=== PATIENT | male | born 1940 | race Caucasian/White ===

== ENCOUNTER 2024-08-04 08:37 | Inpatient (IN) | payer MEDICARE ==
--- NOTE | 2024-08-04 08:47 | ED ---
General Adult HPI - General Stated complaint: HECTOR Time Seen by Provider: 08/04/24 08:37 Source: patient, RN notes reviewed, old records reviewed - History of Present Illness Initial comments: This is an 84-year-old male who presents to the emergency department complaining that since yesterday he has been short of breath. Patient states he has also felt chilled. Patient denies any chest pain or palpitation. Patient states he did have a valve replaced at another hospital in June. Patient denies any increased swelling to his legs. Patient states he has had a little bit of a cough lately. - Related Data Home Medications Medication Instructions Recorded Confirmed Acetaminophen [Tylenol Arthritis] 650 mg PO HS 08/04/24 08/04/24 Arginine [l-Arginine] 500 mg PO DAILY 08/04/24 08/04/24 Aspirin EC [Ecotrin Low Dose] 81 mg PO HS 08/04/24 08/04/24 Bisoprolol-Hctz 2.5-6.25 mg [Ziac 1 tab PO HS 08/04/24 08/04/24 2.5-6.25 MG] Budesonide/Formoterol Fumarate 2 puff INHALATION RT-BID 08/04/24 08/04/24 [Symbicort 160-4.5 Mcg Inhaler] Co-Q-10 (Unknown Dose) 1 tab PO DAILY 08/04/24 08/04/24 L.acidoph,Paracasei, B.lactis 1 cap PO DAILY 08/04/24 08/04/24 [Probiotic] Levocetirizine Dihydrochloride 5 mg PO DAILY 08/04/24 08/04/24 [Xyzal] Losartan [Cozaar] 25 mg PO DAILY 08/04/24 08/04/24 Melatonin 5 mg PO HS 08/04/24 08/04/24 Multivitamins, Thera [Multivitamin 1 tab PO DAILY 08/04/24 08/04/24 (formulary)] Pantoprazole [Protonix] 40 mg PO DAILY 08/04/24 08/04/24 Psyllium Husk [Fiber Capsule] 0.4 gm PO DAILY 08/04/24 08/04/24 Rosuvastatin [Crestor] 10 mg PO HS 08/04/24 08/04/24 Tamsulosin [Flomax] 0.4 mg PO HS 08/04/24 08/04/24 Allergies Allergy/AdvReac Type Severity Reaction Status Date / Time No Known Allergies Allergy Verified 08/04/24 10:40 Review of Systems ROS Statement: Those systems with pertinent positive or pertinent negative responses have been documented in the HPI. ROS Other: All systems not noted in ROS Statement are negative. General Exam - General Exam Comments Initial Comments: GENERAL: Patient is well-developed and well-nourished. Patient is nontoxic and well- hydrated and is in mild distress. ENT: Neck is soft and supple. No significant lymphadenopathy is noted. Oropharynx is clear. Moist mucous membranes. Neck has full range of motion without eliciting any pain. EYES: The sclera were anicteric and conjunctiva were pink and moist. Extraocular movements were intact and pupils were equal round and reactive to light. Eyelid s were unremarkable. PULMONARY: Unlabored respirations. Good breath sounds bilaterally. No audible rales rhonchi or wheezing was noted. CARDIOVASCULAR: There is a regular rate and rhythm without any murmurs gallops or rubs. ABDOMEN: Soft and nontender with normal bowel sounds. SKIN: Skin is clear with no lesions or rashes and otherwise unremarkable. NEUROLOGIC: Patient is alert and oriented x3. Cranial nerves II through XII are grossly intact. Motor and sensory are also intact. Normal speech, volume and content. Symmetrical smile. MUSCULOSKELETAL: Normal extremities with adequate strength and full range of motion. No lower extremity swelling or edema. No calf tenderness. LYMPHATICS: No significant lymphadenopathy is noted PSYCHIATRIC: Normal psychiatric evaluation. Course Vital Signs 08/04/24 08/04/24 08/04/24 08:39 08:45 09:07 Temperature 100.2 F H 100.2 F H Pulse Rate 120 H 117 H Respiratory 24 24 24 Rate Blood Pressure 182/82 168/63 O2 Sat by Pulse 94 L 92 L Oximetry 08/04/24 08/04/24 08/04/24 09:45 10:00 11:00 Temperature 98.5 F 98.5 F Pulse Rate 113 H 110 H 117 H Respiratory 20 20 22 Rate Blood Pressure 131/51 130/60 122/85 O2 Sat by Pulse 93 L 93 L 93 L Oximetry Medical Decision Making - Medical Decision Making EKG is interpreted by myself. EKG shows sinus tachycardia at 119 bpm TX was 167 QRS is 114 QT interval 326 QTc is 397. Patient's EKG shows no ST segment elevation or depression Was pt. sent in by a medical professional or institution ([facility] Morales, SEA[employer] PROCESS WORKER, urgent care, hospital, or retirement...) When possible be specific @ -No Did you speak to anyone other than the patient for history (EMS, parent, family, police, friend...)? What history was obtained from this source @ -No Did you review nursing and triage notes (agree or disagree)? Why? @ -I reviewed and agree with nursing and triage notes Were old charts reviewed (outside hosp., previous admission, EMS record, old EKG, old radiological studies, urgent care reports/EKG's, retirement records)? Report findings @ -No old charts were reviewed Differential Diagnosis? @ -Differential Dyspnea: Coronary syndrome, arrhythmia, tamponade, asthma, COPD, pulmonary embolism, pneumonia, pneumothorax, pulmonary effusion, anaphylaxis, diabetic ketoacidosis, flailed chest, pulmonary contusion, diaphragmatic rupture, anemia, neuromus cular, this is not meant to be an all-inclusive list. EKG interpreted by me (3pts min.). @ -As above X-rays interpreted by me (1pt min.). @ -Chest x-ray showed no acute abnormality CT interpreted by me (1pt min.). @ -CT of the chest showed no PE or pneumonia U/S interpreted by me (1pt. min.). @ -None done What testing was considered but not performed or refused? (CT, X-rays, U/S, labs)? Why? @ -None What meds were considered but not given or refused? Why? @ -None Did you discuss the management of the patient with other professionals (professionals i.e. JO Morales, SEAFOOD PROCESS WORKER, lab, RT, psych nurse, social sciences department chair, copyright manager, teacher, juvenile justice officer, pillowcase turner)? Give summary @ -I spoke with sound physicians they agreed to admit the patient Was smoking cessation discussed for >3mins.? @ -No Was critical care preformed (if so, how long)? @ -No Were there social determinants of health that impacted care today? How? (Homelessness, low income, unemployed, alcoholism, drug addiction, transportation, low edu. Level, literacy, decrease access to med. care, assisted, rehab)? @ -No Was there de-escalation of care discussed even if they declined (Discuss DNR or withdrawal of care, Hospice)? DNR status @ -No What co-morbidities impacted this encounter? (DM, HTN, Smoking, COPD, CAD, Cancer, CVA, ARF, Chemo, Hep., AIDS, mental health diagnosis, sleep apnea, morbid obesity)? @ -None Was patient admitted / discharged? Hospital course, mention meds given and route, prescriptions, significant lab abnormalities, going to OR and other pertinent info. @ -Patient pulse ox on room air was 90 to 93% however when patient was in bed his heart rate was about 110 beats a minute and with any exertion his heart rate would go up to 135 bpm. I did give the patient a dose of antibiotics because if he has shortness of breath and significant coughing. Undiagnosed new problem with uncertain prognosis? @ -No Drug Therapy requiring intensive monitoring for toxicity (Heparin, Nitro, Insulin, Cardizem)? @ -No Were any procedures done? @ -No Diagnosis/symptom? @ -Dyspnea, with fever Acute, or Chronic, or Acute on Chronic? @ -Acute Uncomplicated (without systemic symptoms) or Complicated (systemic symptoms)? @ -Complicated Side effects of treatment? @ -No Exacerbation, Progression, or Severe Exacerbation? @ -No Poses a threat to life or bodily function? How? (Chest pain, [place], [place], pneumonia, PE, COPD, DKA, ARF, appy, cholecystitis, CVA, Diverticulitis, Homicidal, Suicidal, threat to staff... and all critical care pts) @ -No Diagnosis/symptom? @ -Tachycardia Acute, or Chronic, or Acute on Chronic? @ -Acute Uncomplicated (without systemic symptoms) or Complicated (systemic symptoms)? @ -Complicated Side effects of treatment? @ -None Exacerbation, Progression, or Severe Exacerbation] @ -No Poses a threat to life or bodily function? @ -No - Lab Data Result diagrams: 08/04/24 08:39 08/04/24 08:39 Lab Results 08/04/24 08/04/24 08/04/24 Range/Units 08:39 08:39 08:39 WBC 12.2 H (3.8-10.6) k/uL RBC 4.09 L (4.30-5.90) m/uL Hgb 12.1 L (13.0-17.5) gm/dL Hct 36.5 L (39.0-53.0) % MCV 89.2 (80.0-100.0) fL MCH 29.6 (25.0-35.0) pg MCHC 33.2 (31.0-37.0) g/dL RDW 13.8 (11.5-15.5) % Plt Count 282 (150-450) k/uL MPV 6.8 Neutrophils % 89 % Lymphocytes % 6 % Monocytes % 4 % Eosinophils % 1 % Basophils % 0 % Neutrophils # 10.9 H (1.3-7.7) k/uL Lymphocytes # 0.7 L (1.0-4.8) k/uL Monocytes # 0.5 (0-1.0) k/uL Eosinophils # 0.1 (0-0.7) k/uL Basophils # 0.0 (0-0.2) k/uL PT 12.2 (10.0-12.5) sec INR 1.1 (<1.2) APTT 21.7 L (22.0-30.0) sec D-Dimer (<0.60) mg/L FEU Sodium 135 L (137-145) mmol/L Potassium 4.4 (3.5-5.1) mmol/L Chloride 100 (98-107) mmol/L Carbon Dioxide 27 (22-30) mmol/L Anion Gap 8 mmol/L BUN 16 (9-20) mg/dL Creatinine 1.04 (0.66-1.25) mg/dL Est GFR (CKD-EPI)AfAm 75 (>60 ml/min/1.73 sqM) Est GFR (CKD-EPI)NonAf 65 (>60 ml/min/1.73 sqM) Glucose 172 H (74-99) mg/dL Lactic Ac Sepsis Rflx Plasma Lactic Acid John (0.7-2.0) mmol/L Calcium 9.1 (8.4-10.2) mg/dL Total Bilirubin 1.1 (0.2-1.3) mg/dL AST 41 (17-59) U/L ALT 26 (4-49) U/L Alkaline Phosphatase 77 (38-126) U/L NT-Pro-B Natriuret Pep 207 pg/mL Total Protein 7.3 (6.3-8.2) g/dL Albumin 4.5 (3.5-5.0) g/dL Urine Color Urine Appearance (Clear) Urine pH (5.0-8.0) Ur Specific [place] (1.001-1.035) Urine Protein (Negative) Urine Glucose (UA) (Negative) Urine Ketones (Negative) Urine Blood (Negative) Urine Nitrite (Negative) Urine Bilirubin (Negative) Urine Urobilinogen (<2.0) mg/dL Ur Leukocyte Esterase (Negative) Influenza Type A (PCR) (Not Detectd) Influenza Type B (PCR) (Not Detectd) RSV (PCR) (Not Detectd) SARS-CoV-2 (PCR) (Not Detectd) 08/04/24 08/04/24 08/04/24 Range/Units 08:39 08:50 08:54 WBC (3.8-10.6) k/uL RBC (4.30-5.90) m/uL Hgb (13.0-17.5) gm/dL Hct (39.0-53.0) % MCV (80.0-100.0) fL MCH (25.0-35.0) pg MCHC (31.0-37.0) g/dL RDW (11.5-15.5) % Plt Count (150-450) k/uL MPV Neutrophils % % Lymphocytes % % Monocytes % % Eosinophils % % Basophils % % Neutrophils # (1.3-7.7) k/uL Lymphocytes # (1.0-4.8) k/uL Monocytes # (0-1.0) k/uL Eosinophils # (0-0.7) k/uL Basophils # (0-0.2) k/uL PT (10.0-12.5) sec INR (<1.2) APTT (22.0-30.0) sec D-Dimer 1.82 H (<0.60) mg/L FEU Sodium (137-145) mmol/L Potassium (3.5-5.1) mmol/L Chloride (98-107) mmol/L Carbon Dioxide (22-30) mmol/L Anion Gap mmol/L BUN (9-20) mg/dL Creatinine (0.66-1.25) mg/dL Est GFR (CKD-EPI)AfAm (>60 ml/min/1.73 sqM) Est GFR (CKD-EPI)NonAf (>60 ml/min/1.73 sqM) Glucose (74-99) mg/dL Lactic Ac Sepsis Rflx Plasma Lactic Acid John 2.3 H* (0.7-2.0) mmol/L Calcium (8.4-10.2) mg/dL Total Bilirubin (0.2-1.3) mg/dL AST (17-59) U/L ALT (4-49) U/L Alkaline Phosphatase (38-126) U/L NT-Pro-B Natriuret Pep pg/mL Total Protein (6.3-8.2) g/dL Albumin (3.5-5.0) g/dL Urine Color Urine Appearance (Clear) Urine pH (5.0-8.0) Ur Specific [place] (1.001-1.035) Urine Protein (Negative) Urine Glucose (UA) (Negative) Urine Ketones (Negative) Urine Blood (Negative) Urine Nitrite (Negative) Urine Bilirubin (Negative) Urine Urobilinogen (<2.0) mg/dL Ur Leukocyte Esterase (Negative) Influenza Type A (PCR) Not Detected (Not Detectd) Influenza Type B (PCR) Not Detected (Not Detectd) RSV (PCR) Not Detected (Not Detectd) SARS-CoV-2 (PCR) Not Detected (Not Detectd) 08/04/24 08/04/24 Range/Units 09:31 10:37 WBC (3.8-10.6) k/uL RBC (4.30-5.90) m/uL Hgb (13.0-17.5) gm/dL Hct (39.0-53.0) % MCV (80.0-100.0) fL MCH (25.0-35.0) pg MCHC (31.0-37.0) g/dL RDW (11.5-15.5) % Plt Count (150-450) k/uL MPV Neutrophils % % Lymphocytes % % Monocytes % % Eosinophils % % Basophils % % Neutrophils # (1.3-7.7) k/uL Lymphocytes # (1.0-4.8) k/uL Monocytes # (0-1.0) k/uL Eosinophils # (0-0.7) k/uL Basophils # (0-0.2) k/uL PT (10.0-12.5) sec INR (<1.2) APTT (22.0-30.0) sec D-Dimer (<0.60) mg/L FEU Sodium (137-145) mmol/L Potassium (3.5-5.1) mmol/L Chloride (98-107) mmol/L Carbon Dioxide (22-30) mmol/L Anion Gap mmol/L BUN (9-20) mg/dL Creatinine (0.66-1.25) mg/dL Est GFR (CKD-EPI)AfAm (>60 ml/min/1.73 sqM) Est GFR (CKD-EPI)NonAf (>60 ml/min/1.73 sqM) Glucose (74-99) mg/dL Lactic Ac Sepsis Rflx Y Plasma Lactic Acid John (0.7-2.0) mmol/L Calcium (8.4-10.2) mg/dL Total Bilirubin (0.2-1.3) mg/dL AST (17-59) U/L ALT (4-49) U/L Alkaline Phosphatase (38-126) U/L NT-Pro-B Natriuret Pep pg/mL Total Protein (6.3-8.2) g/dL Albumin (3.5-5.0) g/dL Urine Color Yellow Urine Appearance Clear (Clear) Urine pH 5.5 (5.0-8.0) Ur Specific [place] 1.024 (1.001-1.035) Urine Protein Trace H (Negative) Urine Glucose (UA) Negative (Negative) Urine Ketones 1+ H (Negative) Urine Blood Negative (Negative) Urine Nitrite Negative (Negative) Urine Bilirubin Negative (Negative) Urine Urobilinogen <2.0 (<2.0) mg/dL Ur Leukocyte Esterase Negative (Negative) Influenza Type A (PCR) (Not Detectd) Influenza Type B (PCR) (Not Detectd) RSV (PCR) (Not Detectd) SARS-CoV-2 (PCR) (Not Detectd) Disposition Clinical Impression: Dyspnea, Fever, Tachycardia Disposition: ADMITTED IP TO THIS HOSP Referrals: Sherif Tejeda MD [Primary Care Provider] - 1-2 days Time of Disposition: 12:28
[2024-08-04 09:02] LABS: Basophils % (A) 0 %; Eosinophils # (A) 0.1 k/uL (0-0.7); Eosinophils % (A) 1 %; HCT 36.5 % (39.0-53.0); HGB 12.1 gm/dL (13.0-17.5); Lymphocytes # (A) 0.7 k/uL (1.0-4.8); Lymphocytes % (A) 6 %; MCH 29.6 pg (25.0-35.0); MCHC 33.2 g/dL (31.0-37.0); MCV 89.2 fL (80.0-100.0); Mean Platelet Volume 6.8; Monocytes # (A) 0.5 k/uL (0-1.0); Monocytes % (A) 4 %; Neutrophils # (A) 10.9 k/uL (1.3-7.7); Neutrophils % (A) 89 %; Platelet Count 282 k/uL (150-450); RBC 4.09 m/uL (4.30-5.90); RDW 13.8 % (11.5-15.5); WBC 12.2 k/uL (3.8-10.6)
[2024-08-04] MEDS: IBUPROFEN 600 MG TAB PO STA (09:03)
[2024-08-04] MEDS: ACETAMINOPHEN TAB 500 MG TAB PO STA (09:03)
[2024-08-04] MEDS: LACTATED RINGERS 500 ML IV ONE (09:05)
[2024-08-04 09:13] LABS: ALT 26 U/L (4-49); AST 41 U/L (17-59); African American GFR (CKD) 75 (>60 ml/min/1.73 sqM); Albumin 4.5 g/dL (3.5-5.0); Alkaline Phosphatase 77 U/L (38-126); Anion Gap 8 mmol/L; Blood Urea Nitrogen 16 mg/dL (9-20); Calcium 9.1 mg/dL (8.4-10.2); Carbon Dioxide 27 mmol/L (22-30); Chloride 100 mmol/L (98-107); Glucose 172 mg/dL (74-99); Non-African American GFR(CKD) 65 (>60 ml/min/1.73 sqM); Potassium 4.4 mmol/L (3.5-5.1); Sodium 135 mmol/L (137-145); Total Bilirubin 1.1 mg/dL (0.2-1.3); Total Protein 7.3 g/dL (6.3-8.2)
[2024-08-04 09:22] LABS: NT-Pro-B-Type Natriuretic Pept 207 pg/mL
[2024-08-04 09:24] LABS: INR 1.1 (<1.2); Prothrombin Time 12.2 sec (10.0-12.5)
[2024-08-04 09:28] LABS: Partial Thromboplastin Time 21.7 sec (22.0-30.0)
--- NOTE | 2024-08-04 09:31 | XR ---
EXAMINATION TYPE: XR chest 2V DATE OF EXAM: 08/04/2024 9:14 AM COMPARISON: 07/28/2023 CLINICAL INDICATION: Male, 84 years old with history of Difficulty breathing , TECHNIQUE: XR chest 2V view(s) obtained. FINDINGS: The heart size is normal. The pulmonary vasculature is normal. The lungs are clear. Some hyperinflation is present. Prior cardiac valve replacement is evident. IMPRESSION: 1. No acute pulmonary process. [facility], , 08/04/2024 9:28 AM
[2024-08-04 09:36] LABS: Influenza A Not Detected (Not Detectd); Influenza B Not Detected (Not Detectd); RSV Not Detected (Not Detectd)
[2024-08-04 10:43] LABS: Appearance,Urine Clear (Clear); Bilirubin,Urine Negative (Negative); Blood,Urine Negative (Negative); Color,Urine Yellow; Glucose,Urine (UA) Negative (Negative); Ketones,Urine 1+ (Negative); Leukocyte Esterase,Urine Negative (Negative); Nitrite,Urine Negative (Negative); PH, Urine 5.5 (5.0-8.0); Protein,Urine Trace (Negative); Specific Gravity,Urine 1.024 (1.001-1.035); Urobilinogen,Urine <2.0 mg/dL (<2.0)
[2024-08-04] MEDS: cefTRIAXone IN SWFI 1,000 MG/10 ML SYRINGE IVP STA (11:10)
--- NOTE | 2024-08-04 12:11 | CT ---
EXAMINATION TYPE: CT chest angio for PE DATE OF EXAM: 08/04/2024 11:53 AM COMPARISON: None. CLINICAL INDICATION: Male, 84 years old with history of Short of breath and tachycardic, SOB, TACHYCA RDIC, TECHNIQUE: CT of the chest is performed on a spiral scan at 2 mm thick sections. Study is performed with intravenous contrast timed for evaluation for pulmonary embolism. This will limit additional po rtions of the evaluation. 10mm MIP images reconstructed by the technologist are reviewed on the comp uter in the coronal and sagittal planes. Contrast used:100 ml mL of Isovue 370 with IV Contrast, (none if empty) Oral contrast used: (none if empty) CT DLP: 470.3 mGycm, Automated exposure control for dose reduction was used. FINDINGS: No persistent filling defects are evident to suggest an acute pulmonary embolism. No mediastinal or hilar adenopathy enlarged by CT criteria is evident. The ascending aorta diameter at the level of the main pulmonary artery is 3.5 cm. The main pulmonary artery diameter at the bifurcation is 2.6 cm. Lung windows are clear. Some emphysematous type changes are present. No significant coronary artery calcifications. Limited CT sections were through the upper abdomen. Upper abdomen appears unremarkable. IMPRESSION: 1. No acute pulmonary embolism. 2. Mild emphysematous change [facility], , 08/04/2024 12:09 PM
[2024-08-04] MEDS ORDERED: IBUPROFEN 600 MG TAB PO PRN (12:39)
[2024-08-04] MEDS ORDERED: ACETAMINOPHEN TAB 325 MG TAB PO PRN (12:39)
[2024-08-04] MEDS ORDERED: IPRATROPIUM-ALBUTEROL 3 ML NEB INHALATION PRN (12:54)
--- NOTE | 2024-08-04 13:01 | P.HPIM ---
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 Ongoing for the past 3-4 days. He reports a dry cough, mild lower extremity swelling, poor appetite and subjective chills. Denies any orthopnea. No sick contacts. He follows a Senior Financial Reporting Accountant out of [facility] and Weighmaster Dr. García. He also reports chest pain, on and off for many years, described as chest tightness. He reports undergoing a cardiac cath recently prior to his TAVR and was told everything was normal. He reports a burning sensation in his right anterior thigh over the past 3-4 days as well. He denies any headache, nausea or vomiting, fever, palpitations, dizziness, changes in urination or bowel habits. In the ED he underwent extensive evaluation. BP 168/63, HR 117, T 100.2F, RR 24, 92% on RA. CBC, Coag panel, CMP significant for WBC 12.2, RBC 4.09, Hg 12.1, Hct 36.5, APTT 21.7, Na 135, glu 172. Lactic acid 2.3. D-Dimer 1.82. BNP 207. UA trace protein. Flu, RSV, COVID neg. CXR no acute process. CTA chest neg for PE. EKG sinus tachycardia. Patient is admitted for further workup and management. General: nontoxic, no distress, appears stated age Derm: warm, dry Head: atraumatic, normocephalic, symmetric Mouth: no lip lesion, mucus membranes moist Cardiovascular: S1S2 tachy, no murmur Lungs: Decreased BS bilaterally, no rales , no accessory muscle use Abd: Soft, non tender to palpation Ext: no gross muscle atrophy, 1+ LE edema, no contractures Neuro: No focal neurologic deficits. Psych: Alert and oriented. Based on my assessment of this patient, this patient meets a high complexity level of care. Acute Dyspnea: BNP 207, CHF less likely. D-Dimer elevated but CTA chest neg for PE. Plans to rule out ACS. He does meet SIRS criteria (leukocytosis, low grade fever, tachycardia and RR > 20), possibility of a viral infection not ruled out. Obtain Echo given recent TAVR. DuoNeb Q4H PRN SOB/wheezing. Chest pain: Trend Trop/EKG to rule out ACS. ASA 81 mg PO QD. Lipitor as below. Telemetry monitoring. SIRS: No signs of obvious infection at this time. CXR/CTA chest and UA neg. COVID, RSV, Flu neg. Hold antibiotics for now. BCx ordered. Lactic acidosis: Status post 500 cc NS bolus. Trend until negative. Elevated D-Dimer: CTA chest neg for PE. Paresthesia: Of the right anterior thigh. 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 Fall precautions. PT and OT consult. BPH: Flomax 0.4 mg PO QD. HLD: Lipitor 20 mg PO QHS. GERD: Protonix 40 mg PO QD. HTN: Losartan 25 mg PO QD. Emphysema: Not in acute exacerbation. Symbicort 2 INH BID. DuoNeb as above. CODE STATUS: NO CODE but OK with intubation and other life saving measures. DVT Prophylaxis: Lovenox SQ GI Prophylaxis: Protonix PO Designated medical POA if patient is not able to make medical decisions for themselves: Daughter I have reviewed the following technical solutions consultant notes: ED note. I have reviewed the results of the following tests: As above. I have ordered the following tests: As above. I have discussed the care of this patient with the following independent historian: Daughter. I have independently interpreted the following test below: CXR I have discussed the management of this patient with the following physician: Dr. Sanchez. Past Medical History Past Medical History: Hyperlipidemia, Hypertension History of Any Multi-Drug Resistant Organisms: None Reported Additional Past Surgical History / Comment(s): heart valve replacemnt 07/16/24 Smoking Status: Former smoker Past Alcohol Use History: None Reported Past Drug Use History: None Reported Medications and Allergies Home Medications Medication Instructions Recorded Confirmed Type Acetaminophen [Tylenol Arthritis] 650 mg PO HS 08/04/24 08/04/24 History Arginine [l-Arginine] 500 mg PO DAILY 08/04/24 08/04/24 History Aspirin EC [Ecotrin Low Dose] 81 mg PO HS 08/04/24 08/04/24 History Bisoprolol-Hctz 2.5-6.25 mg [Ziac 1 tab PO HS 08/04/24 08/04/24 History 2.5-6.25 MG] Budesonide/Formoterol Fumarate 2 puff INHALATION RT-BID 08/04/24 08/04/24 History [Symbicort 160-4.5 Mcg Inhaler] Co-Q-10 (Unknown Dose) 1 tab PO DAILY 08/04/24 08/04/24 History L.acidoph,Paracasei, B.lactis 1 cap PO DAILY 08/04/24 08/04/24 History [Probiotic] Levocetirizine Dihydrochloride 5 mg PO DAILY 08/04/24 08/04/24 History [Xyzal] Losartan [Cozaar] 25 mg PO DAILY 08/04/24 08/04/24 History Melatonin 5 mg PO HS 08/04/24 08/04/24 History Multivitamins, Thera [Multivitamin 1 tab PO DAILY 08/04/24 08/04/24 History (formulary)] Pantoprazole [Protonix] 40 mg PO DAILY 08/04/24 08/04/24 History Psyllium Husk [Fiber Capsule] 0.4 gm PO DAILY 08/04/24 08/04/24 History Rosuvastatin [Crestor] 10 mg PO HS 08/04/24 08/04/24 History Tamsulosin [Flomax] 0.4 mg PO HS 08/04/24 08/04/24 History Allergies Allergy/AdvReac Type Severity Reaction Status Date / Time No Known Allergies Allergy Verified 08/04/24 10:40 Physical Exam Vitals: Vital Signs Temp Pulse Resp BP Pulse Ox 08/04/24 11:00 117 H 22 122/85 93 L 08/04/24 10:00 98.5 F 110 H 20 130/60 93 L 08/04/24 09:45 98.5 F 113 H 20 131/51 93 L 08/04/24 09:07 24 08/04/24 08:45 100.2 F H 117 H 24 168/63 92 L 08/04/24 08:39 100.2 F H 120 H 24 182/82 94 L Intake and Output 08/03/24 08/04/24 08/04/24 22:59 06:59 14:59 Other: Weight 101.605 kg Results CBC & Chem 7: 08/04/24 08:39 08/04/24 08:39 Labs: Abnormal Lab Results - Last 24 Hours (Table) 08/04/24 08/04/24 08/04/24 Range/Units 08:39 08:39 08:39 WBC 12.2 H (3.8-10.6) k/uL RBC 4.09 L (4.30-5.90) m/uL Hgb 12.1 L (13.0-17.5) gm/dL Hct 36.5 L (39.0-53.0) % Neutrophils # 10.9 H (1.3-7.7) k/uL Lymphocytes # 0.7 L (1.0-4.8) k/uL APTT 21.7 L (22.0-30.0) sec D-Dimer (<0.60) mg/L FEU Sodium 135 L (137-145) mmol/L Glucose 172 H (74-99) mg/dL Plasma Lactic Acid John (0.7-2.0) mmol/L Urine Protein (Negative) Urine Ketones (Negative) 08/04/24 08/04/24 08/04/24 Range/Units 08:39 08:50 10:37 WBC (3.8-10.6) k/uL RBC (4.30-5.90) m/uL Hgb (13.0-17.5) gm/dL Hct (39.0-53.0) % Neutrophils # (1.3-7.7) k/uL Lymphocytes # (1.0-4.8) k/uL APTT (22.0-30.0) sec D-Dimer 1.82 H (<0.60) mg/L FEU Sodium (137-145) mmol/L Glucose (74-99) mg/dL Plasma Lactic Acid John 2.3 H* (0.7-2.0) mmol/L Urine Protein Trace H (Negative) Urine Ketones 1+ H (Negative)
[2024-08-04] MEDS: SODIUM CHLORIDE 0.9% 1,000 ML IV ONE (13:17)
[2024-08-04] MEDS: SODIUM CHLORIDE 0.9% 500 ML 500 ML IV ONE (13:18)
[2024-08-04] MEDS: ASPIRIN 81 MG PO STA (14:30)
[2024-08-04] MEDS: SODIUM CHLORIDE 0.9% 1,000 ML IV SCH (14:30)
[2024-08-04] MEDS: LACTATED RINGERS 1,000 ML IV ONE (16:45)
[2024-08-04] MEDS: SYMBICORT 160-4.5 MCG INHALER INHALATION SCH (20:02)
[2024-08-04] MEDS ORDERED: ASPIRIN 81 MG PO SCH (21:00)
[2024-08-04] MEDS: ATORVASTATIN 20 MG TAB PO SCH (22:01)
[2024-08-04] MEDS: MELATONIN 5 MG TABLET PO SCH (22:01)
[2024-08-04] MEDS: TAMSULOSIN 0.4 MG CAP.ER.24H PO SCH (22:01)
[2024-08-04] MEDS: BISOPROLOL-HCTZ 2.5-6.25 MG 1 EACH TAB PO SCH (22:07)
[2024-08-05] MEDS: LORATADINE 10 MG TAB PO SCH (08:19)
[2024-08-05] MEDS: ENOXAPARIN 40 MG/0.4 ML SYRINGE SQ SCH (08:19)
[2024-08-05] MEDS: LOSARTAN 25 MG TAB PO SCH (08:19)
[2024-08-05] MEDS: PANTOPRAZOLE 40 MG TABLET PO SCH (08:20)
[2024-08-05 08:36] VITALS: BMI 35.0
[2024-08-05] MEDS: CEFEPIME 2 GM in SODIUM CHLORIDE 0.9% 100 ML IVPB SCH ×2 (09:41→20:34)
--- NOTE | 2024-08-05 10:03 | P.CRDCN ---
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 We have been asked to see the patient in consultation for his troponins. Patient examined at the bedside. Patient presented to the hospital with a chief complaint of shortness of breath and fatigue. Patient states on Monday morning he began to feel short of breath and very tired. He also reports having a cough without sputum production. He states on Monday he had fever and chills at home. The patient was found to be tachycardic and febrile upon admission. Initial viral panel was completed which was negative. Patient denies having any chest pain or pressure. Preliminary blood cultures are positive for gram-negative bacilli. Patient does report he underwent TAVR on 07/16/2024 at [facility]. He reports having a cardiac catheterization prior to his surgery and states he did not have any blockages. DIAGNOSTICS: - EKG reveals sinus tachycardia with incomplete right bundle branch block. No signs of acute ischemia. - Chest xray negative for acute process - Chest CTA: Negative for pulmonary embolism - Laboratory data: WBC 12.2. Hemoglobin 12.1. Platelet count 282. Sodium 135. Potassium 4.4. BUN 16. Creatinine 1.04. Troponin 0.040. 0.049. - Current home cardiac medications include Ziac 2.5-6.25 mg at night, rosuvastatin 10 mg at night, aspirin 81 mg daily, and losartan 25 mg daily. - No previous echocardiogram, stress test, or cardiac catheterization available in EMR for review REVIEW OF SYSTEMS: At the time of my exam: CONSTITUTIONAL: Denies fever or chills. HEENT: Denies blurred vision, vision changes, or eye pain. Denies hemoptysis CARDIOVASCULAR: Denies chest pain. Denies orthopnea. Denies PND. Denies palp itations RESPIRATORY: Denies shortness of breath. GASTROINTESTINAL: Denies abdominal pain. Denies nausea or vomiting. HEMATOLOGIC: Denies bleeding disorders. GENITOURINARY: Denies any blood in urine. SKIN: Denies pruitis. Denies rash. PHYSICAL EXAM: VITAL SIGNS: Reviewed. GENERAL: Well-developed in no acute distress. HEENT: Head is normocephalic. Pupils are equal, round. Sclerae anicteric. Mucous membranes of the mouth are moist. Neck supple. No JVD or thyromegaly LUNGS: Respirations even and unlabored. Lungs essentially clear to auscultation bilaterally. HEART: Regular rate and rhythm. S1 and S2 heard. ABDOMEN: Soft. Nondistended. Nontender. EXTREMITIES: Normal range of motion. No clubbing or cyanosis. Peripheral pulses intact. No lower extremity edema NEUROLOGIC: Awake and alert. Oriented x 3. ASSESSMENT: Sepsis (febrile, leukocytosis, tachycardic) Bacteremia, blood cultures positive for gram-negative bacilli Elevated troponin, type II, secondary to sepsis History of TAVR, 07/16/2024, at [facility] Hypertension Hyperlipidemia PLAN: An acute coronary event has been ruled out Obtain 2D echo to assess cardiac structure and function Recheck patient for COVID, RSV, influenza Await finalization of blood cultures Resume home cardiac medications Further recommendations pending patient course Nurse practitioner note has been reviewed by physician. Signing provider agrees with the documented findings, assessment, and plan of care documented by GRAPHIC COORDINATOR as a scribe. Past Medical History Past Medical History: Hyperlipidemia, Hypertension History of Any Multi-Drug Resistant Organisms: None Reported Past Surgical History: Joint Replacement, Orthopedic Surgery Additional Past Surgical History / Comment(s): heart valve replacemnt 07/16/24; Bilat hip replacement 2013 Past Anesthesia/Blood Transfusion Reactions: No Reported Reaction Past Psychological History: No Psychological Hx Reported Smoking Status: Former smoker Past Alcohol Use History: None Reported Past Drug Use History: None Reported Medications and Allergies Home Medications Medication Instructions Recorded Confirmed Type Acetaminophen [Tylenol Arthritis] 650 mg PO HS 08/04/24 08/04/24 History Arginine [l-Arginine] 500 mg PO DAILY 08/04/24 08/04/24 History Aspirin EC [Ecotrin Low Dose] 81 mg PO HS 08/04/24 08/04/24 History Bisoprolol-Hctz 2.5-6.25 mg [Ziac 1 tab PO HS 08/04/24 08/04/24 History 2.5-6.25 MG] Budesonide/Formoterol Fumarate 2 puff INHALATION RT-BID 08/04/24 08/04/24 History [Symbicort 160-4.5 Mcg Inhaler] Co-Q-10 (Unknown Dose) 1 tab PO DAILY 08/04/24 08/04/24 History L.acidoph,Paracasei, B.lactis 1 cap PO DAILY 08/04/24 08/04/24 History [Probiotic] Levocetirizine Dihydrochloride 5 mg PO DAILY 08/04/24 08/04/24 History [Xyzal] Losartan [Cozaar] 25 mg PO DAILY 08/04/24 08/04/24 History Melatonin 5 mg PO HS 08/04/24 08/04/24 History Multivitamins, Thera [Multivitamin 1 tab PO DAILY 08/04/24 08/04/24 History (formulary)] Pantoprazole [Protonix] 40 mg PO DAILY 08/04/24 08/04/24 History Psyllium Husk [Fiber Capsule] 0.4 gm PO DAILY 08/04/24 08/04/24 History Rosuvastatin [Crestor] 10 mg PO HS 08/04/24 08/04/24 History Tamsulosin [Flomax] 0.4 mg PO HS 08/04/24 08/04/24 History Allergies Allergy/AdvReac Type Severity Reaction Status Date / Time acetaminophen [From [place]] AdvReac Hallucinati Verified 08/04/24 21:51 ons hydrocodone [From [place]] AdvReac Hallucinati Verified 08/04/24 21:51 ons Physical Exam Vitals: Vital Signs Temp Pulse Pulse Resp BP BP Pulse Ox 08/05/24 07:00 98.2 F 86 16 151/74 98 08/05/24 01:44 98.6 F 62 15 126/74 99 08/04/24 20:35 99.0 F 95 20 133/66 95 08/04/24 16:30 98 20 139/57 97 08/04/24 14:28 98.3 F 98 20 105/48 93 L 08/04/24 11:00 117 H 22 122/85 93 L 08/04/24 10:00 98.5 F 110 H 20 130/60 93 L 08/04/24 09:45 98.5 F 113 H 20 131/51 93 L 08/04/24 09:07 24 08/04/24 08:45 100.2 F H 117 H 24 168/63 92 L 08/04/24 08:39 100.2 F H 120 H 24 182/82 94 L Intake and Output 08/04/24 08/05/24 08/05/24 22:59 06:59 14:59 Other: # Voids 3 # Bowel Movements 0 Weight 101.605 kg Results 08/04/24 08:39 08/04/24 08:39 Cardiac Enzymes 08/04/24 08/04/24 08/04/24 Range/Units 08:39 13:16 15:39 AST 41 (17-59) U/L Troponin I 0.040 H* 0.049 H* (0.000-0.034) ng/mL Coagulation 08/04/24 Range/Units 08:39 PT 12.2 (10.0-12.5) sec APTT 21.7 L (22.0-30.0) sec CBC 08/04/24 Range/Units 08:39 WBC 12.2 H (3.8-10.6) k/uL RBC 4.09 L (4.30-5.90) m/uL Hgb 12.1 L (13.0-17.5) gm/dL Hct 36.5 L (39.0-53.0) % Plt Count 282 (150-450) k/uL Comprehensive Metabolic Panel 08/04/24 Range/Units 08:39 Sodium 135 L (137-145) mmol/L Potassium 4.4 (3.5-5.1) mmol/L Chloride 100 (98-107) mmol/L Carbon Dioxide 27 (22-30) mmol/L BUN 16 (9-20) mg/dL Creatinine 1.04 (0.66-1.25) mg/dL Glucose 172 H (74-99) mg/dL Calcium 9.1 (8.4-10.2) mg/dL AST 41 (17-59) U/L ALT 26 (4-49) U/L Alkaline Phosphatase 77 (38-126) U/L Total Protein 7.3 (6.3-8.2) g/dL Albumin 4.5 (3.5-5.0) g/dL Current Medications Generic Name Dose Route Start Last Admin Trade Name Freq PRN Reason Stop Dose Admin Acetaminophen 650 mg 08/04/24 12:39 Acetaminophen Tab 325 Mg Tab PO Q4HR PRN Fever and/ or Pain Albuterol/Ipratropium 3 ml 08/04/24 12:54 Ipratropium-Albuterol 3 Ml Neb INHALATION RT-Q4H PRN Shortness Of Breath Or Wheezing Aspirin 81 mg 08/05/24 21:00 Aspirin 81 Mg PO HS [facility] Atorvastatin Calcium 20 mg 08/04/24 21:00 08/04/24 22:01 Atorvastatin 20 Mg Tab PO 20 mg HS AMALIA Administration Bisoprolol Fumarate 1 each 08/04/24 21:00 08/04/24 22:07 Bisoprolol-Hctz 2.5-6.25 Mg 1 Each Tab PO 1 each HS [facility] Administration Budesonide/Formoterol Fumarate 2 puff 08/04/24 20:00 08/04/24 20:02 Symbicort 160-4.5 Mcg Inhaler INHALATION 2 puff RT-BID AMALIA Administration Enoxaparin Sodium 40 mg 08/05/24 09:00 Enoxaparin 40 Mg/0.4 Ml Syringe SQ DAILY [facility] Sodium Chloride 1,000 mls @ 75 mls/hr 08/04/24 14:15 08/05/24 03:55 Saline 0.9% IV Not Given .[id number] [facility] Ibuprofen 600 mg 08/04/24 12:39 Ibuprofen 600 Mg Tab PO Q6H PRN Fever Loratadine 10 mg 08/05/24 09:00 Loratadine 10 Mg Tab PO DAILY [facility] Losartan Potassium 25 mg 08/05/24 09:00 Losartan 25 Mg Tab PO DAILY [facility] Melatonin 5 mg 08/04/24 21:00 08/04/24 22:01 Melatonin 5 Mg Tablet PO 5 mg HS [facility] Administration Pantoprazole Sodium 40 mg 08/05/24 09:00 Pantoprazole 40 Mg Tablet PO DAILY [facility] Tamsulosin HCl 0.4 mg 08/04/24 21:00 08/04/24 22:01 Tamsulosin 0.4 Mg Cap.Er.24h PO 0.4 mg HS [facility] Administration Intake and Output 08/04/24 08/05/24 08/05/24 22:59 06:59 14:59 Other: # Voids 3 # Bowel Movements 0 Weight 101.605 kg 08/04/24 08:39 08/04/24 08:39
[2024-08-05 11:37] LABS: Influenza A Not Detected (Not Detectd); Influenza B Not Detected (Not Detectd); RSV Not Detected (Not Detectd)
--- NOTE | 2024-08-05 12:38 | CA ---
Transthoracic Echo Report Name: Cuco Brooks Age: 84 Gender: M : 1940 Exam Date: 08/05/2024 08:45 Exam Location: [facility] Ht (in): 67 Wt (lb): 224 Ordering Physician: Vasiliy Reyes MD Attending/Referring Phys: Insole Tack Puller Hand Marlena Galvan RDCS Procedure CPT: Indications: SOB, h/o valve replacement Cardiac Hx: Technical Quality: Good Contrast 1: Total Dose (mL): Contrast 2: Total Dose (mL): MEASUREMENTS (Male / Female) Normal Values 2D ECHO LV Diastolic Diameter PLAX 4.8 cm 4.2 - 5.9 / 3.9 - 5.3 cm LV Systolic Diameter PLAX 3.1 cm IVS Diastolic Thickness 1.0 cm 0.6 - 1.0 / 0.6 - 0.9 cm LVPW Diastolic Thickness 1.0 cm 0.6 - 1.0 / 0.6 - 0.9 cm LV Relative Wall Thickness 0.4 RV Internal Dim ED PLAX 3.9 cm LVOT Diameter 1.6 cm LA Systolic Diameter LX 3.5 cm 3.0 - 4.0 / 2.7 - 3.8 cm LV Diastolic Volume MOD BP 118.8 cm??? 67 - 155 / 56 - 104 cm??? LV Systolic Volume MOD BP 48.3 cm??? 22 - 58 / 19 - 49 cm??? LV Ejection Fraction MOD BP 59.3 % >= 55 % LV Diastolic Volume MOD 4C 118.4 cm??? LV Systolic Volume MOD 4C 48.1 cm??? LV Ejection Fraction MOD 4C 59.4 % LV Diastolic Length 4C 8.7 cm LV Systolic Length 4C 6.6 cm LV Diastolic Volume MOD 2C 116.8 cm??? LV Systolic Volume MOD 2C 46.3 cm??? LV Ejection Fraction MOD 2C 60.3 % LV Diastolic Length 2C 8.5 cm LV Systolic Length 2C 7.0 cm LA Volume 95.8 cm??? 18 - 58 / 22 - 52 cm??? LA Volume Index 42.9 cm???/m??? 16 - 28 cm???/m??? DOPPLER AV Peak Velocity 274.4 cm/s AV Peak Gradient 30.1 mmHg AV Mean Velocity 185.3 cm/s AV Mean Gradient 15.7 mmHg AV Velocity Time Integral 49.4 cm LVOT Peak Velocity 174.7 cm/s LVOT Peak Gradient 12.2 mmHg LVOT Velocity Time Integral 40.9 cm LVOT Stroke Volume 79.7 cm??? LVOT Stroke Volume Index 37.6 ml/m??? AV Area Cont Eq vti 1.6 cm??? AV Area Cont Eq pk 1.2 cm??? MV Peak Velocity 185.9 cm/s MV Peak Gradient 13.8 mmHg MV Mean Velocity 131.8 cm/s MV Mean Gradient 7.3 mmHg MV Velocity Time Integral 44.6 cm MV Area PHT 2.3 cm??? Mitral E Point Velocity 120.3 cm/s Mitral A Point Velocity 151.3 cm/s Mitral E to A Ratio 0.8 MV Deceleration Time 312.4 ms TR Peak Velocity 305.3 cm/s TR Peak Gradient 37.3 mmHg Right Atrial Pressure 10.0 mmHg Pulmonary Artery Systolic Pressu 47.3 mmHg Right Ventricular Systolic Press 47.3 mmHg FINDINGS Left Ventricle Left ventricular ejection fraction is estimated at 60-65%. Normal left ventricular systolic function with no obvious regional wall motion abnormalities. Right Ventricle Mild right ventricular dilatation. Moderate pulmonary hypertension. Right Atrium Normal right atrial size. Left Atrium Severely increased left atrial volume. Mildly increased left atrial area. Mitral Valve Mitral valve thickened. Mitral annular calcification. Moderate mitral stenosis. Trace mitral regurgitation. Aortic Valve Aortic valve replacement.no aortic stenosis. No aortic regurgitation. Tricuspid Valve Structurally normal tricuspid valve. No tricuspid stenosis. Trace tricuspid regurgitation. Pulmonic Valve Structurally normal pulmonic valve. No pulmonic stenosis. Trace pulmonic regurgitation. Pericardium No pericardial or pleural effusion. Aorta Normal size aortic root and proximal ascending aorta. CONCLUSIONS Normal biventricular systolic function Transcatheter valve in aortic position with no aortic insufficiency and mean gradient of 15 mmHg across the valve Thickened mitral valve leaflets with moderate mitral stenosis Moderate pulmonary hypertension Mild RV enlargement Previewed by: Dr. He Powers MD (Electronically Signed) Final Date: 05 August 2024 12:37
--- NOTE | 2024-08-05 14:40 | P.PN ---
Subjective Progress Note Date: 08/05/24 Hospital Course: 84 year old M with recent TAVR on 07/16 at [facility], BPH, HLD, GERD, HTN, emphysema presents to the ED for shortness of breath. Ongoing for the past 3-4 days. He reports a dry cough, mild lower extremity swelling, poor appetite and subjective chills. Denies any orthopnea. No sick contacts. He follows a Garden Labourer out of [facility] and [employer] Dr. García. He also reports chest pain, on and off for many years, described as chest tightness. He reports undergoing a cardiac cath recently prior to his TAVR and was told everything was normal. He reports a burning sensation in his right anterior thigh over the past 3-4 days as well. He denies any headache, nausea or vomiting, fever, palpitations, dizziness, changes in urination or bowel habits. In the ED he underwent extensive evaluation. BP 168/63, HR 117, T 100.2F, RR 24, 92% on RA. CBC, Coag panel, CMP significant for WBC 12.2, RBC 4.09, Hg 12.1, Hct 36.5, APTT 21.7, Na 135, glu 172. Lactic acid 2.3. D-Dimer 1.82. BNP 207. UA trace protein. Flu, RSV, COVID neg. CXR no acute process. CTA chest neg for PE. EKG sinus tachycardia. Patient is admitted for further workup and management. Cardiology was consulted for elevated troponin, recommended to obtain TTE, TTE showed normal biventricular systolic function, no aortic insufficiency, moderate pulmonary hypertension ;resume home medications, ACS has been ruled out. Blood cultures came back positive for gram-negative bacilli 2 out of 2, patient started on cefepime. Repeat blood cultures pending. Cepheid negative. Pertinent Imaging: As above Subjective: Complains of feeling fatigued, no other complaints Pertinent positives and negatives as discussed above, a complete review of systems was performed and all other systems are negative. Vitals Signs Reviewed. General: [nontoxic], [no distress], [appears at stated age] Derm: [warm], [dry] Head: [atraumatic], [normocephalic], [symmetric] Eyes: [EOMI], [no lid lag], [anicteric sclera] Mouth: [no lip lesion], [mucus membranes moist] Cardiovascular: [S1S2 reg], [ Lungs: [CTA bilateral], [no rhonchi, no rales] , [no accessory muscle use] Abdominal: [soft], [ nontender to palpation], [no guarding], [no appreciable organomegaly] Ext: [no gross muscle atrophy], [no edema], [no contractures] Neuro: [ CN II-XI grossly intact], [no focal neuro deficits] Psych: [Alert], [oriented], [appropriate affect] Data Reviewed Today: Pertinent Labs: Cepheid negative Assessment and Plan: Sepsis secondary to gram-negative bacilli bacteremia, unknown source Lactic acidosis secondary to above -Cefepime 2 g every 12 hours SOT 08/05 -Repeat blood cultures, follow-up on final results -UA negative, Cepheid negative, recently noted some sneezing, watery nasal drainage, currently improved -Afebrile since 08/04/24 8 a.m., BP normotensive/hypertensive -Continue NS at 75 cc/h Elevated D-dimer: CTA negative for PE Paresthesia, likely paresthesia neurologic, PT OT BPH: Flomax 0.4 mg p.o. daily Elevated troponin, type II, likely in the settings of sepsis, ACS ruled out Recent TAVR 07/16/2024 HTN HLD Mild pulmonary hypertension -Cardiology consulted, appreciate recommendations -Continue Lipitor 20 mg p.o. daily, losartan 25 mg p.o. daily Emphysema: Chronic, not in acute exacerbation, continue Symbicort 2 inhalations twice daily, DuoNeb every 4 hours as needed for shortness of breath DVT ppx: Lovenox Code status: No code, okay with intubation Anticipated discharge place: TBD Anticipated discharge time: TBD Objective - Vital Signs Vital signs: Vital Signs Temp 98.2 F 08/05/24 07:00 Pulse 86 08/05/24 07:00 Resp 16 08/05/24 07:00 BP 151/74 08/05/24 07:00 Pulse Ox 98 08/05/24 07:00 FiO2 Intake & Output 08/04/24 08/05/24 08/05/24 18:59 06:59 18:59 Intake Total 221 Balance 221 Weight 101.605 kg 101.605 kg 101.605 kg Intake: Oral 221 Other: # Voids 3 # Bowel Movements 0 - Labs CBC & Chem 7: 08/04/24 08:39 08/04/24 08:39 Labs: Abnormal Lab Results - Last 24 Hours (Table) 08/04/24 08/04/24 Range/Units 15:39 15:46 Plasma Lactic Acid John 2.8 H* (0.7-2.0) mmol/L Troponin I 0.049 H* (0.000-0.034) ng/mL Microbiology - Last 24 Hours (Table) 08/04/24 08:39 Blood Culture Gram Stain - Preliminary Blood Blood Culture - Preliminary 08/04/24 08:48 Blood Culture Gram Stain - Preliminary Blood
[2024-08-05] MEDS: ASPIRIN 81 MG PO SCH (20:35)
[2024-08-06] MEDS ORDERED: HEPARIN SODIUM 1,000 UN/ML (10ML VL) IV PRN (00:32)
[2024-08-06] MEDS: HEPARIN SOD,PORK IN 0.45% NACL 25,000 UNIT in 0.45% NACL 1 250ML.BAG IV SCH (01:38)
[2024-08-06] MEDS: HEPARIN SODIUM 1,000 UN/ML (10ML VL) IV ONE (01:38)
[2024-08-06 08:28] LABS: Basophils # (A) 0.03 10*3/uL (0.00-0.10); Basophils % (A) 0.3 %; Eosinophils # (A) 0.06 10*3/uL (0.04-0.35); Eosinophils % (A) 0.6 %; HCT 34.4 % (39.6-50.0); HGB 12.2 g/dL (13.0-17.0); Lymphocytes # (A) 0.99 10*3/uL (0.90-5.00); Lymphocytes % (A) 10.3 %; MCHC 35.5 g/dL (32.0-37.0); MCV 87.5 fL (80.0-97.0); Mean Platelet Volume 9.6 fL (9.5-12.2); Monocytes # (A) 1.25 10*3/uL (0.20-1.00); Monocytes % (A) 13.1 %; Neutrophils % (A) 75.3 %; Platelet Count 220 10*3/uL (140-440); RBC 3.93 10*6/uL (4.40-5.60); RDW 13.5 % (11.5-14.5); WBC 9.57 10*3/uL (4.50-10.00)
--- NOTE | 2024-08-06 10:26 | CDI ---
Documentation Clarification Form Date: 08/06/2024 10:03:20 AM From: Jenny Salvador RN CCDS Phone: [phone] Admit Date: 08/04/2024 12:38:00 PM Patient Name: Cuco Broosk Visit Number: [id number] Discharge Date: ATTENTION: The Clinical Documentation Specialists (CDI) and [facility] Coding Staff appreciate your assistance in clarifying documentation. Please respond to the clarification below the line at the bottom and electronically sign. The CDI & [facility] Coding staff will review the response and follow-up if needed. Please note: Queries are made part of the Legal Health Record. If you have any questions, please contact the author of this message via ITS. Provider: RICHIE Martin There is documentation of Elevated troponin, type II, secondary to sepsis, Cardiology consult, 08/05. Additional clarification is requested. History/Risk Factors: 84 year old male presents to the ED with shortness of breath and felt chilled. Medical History; BPH, HLD, GERD, HTN and emphysema. Clinical Indicators: VSS, 08/04: B/P 182/82, HR 120, Temp 100.2F Oral, RR 24, SpO2 94%2Lnc Troponin 08/04: 0.049 Labs, 08/04: Plasma lactic acid 2.3, Wbc 12.2, Neutrophils 10.9 Blood cultures, 08/04 Gram negative Bacilli CXR, 08/04: No acute pulmonary process. EKG, 08/05 Cardiology note: Reveals sinus tachycardia with incomplete right bundle branch block. No signs of acute ischemia. ECHO, 08/05: EF 60-65% Normal biventricular systolic function Transcatheter valve in aortic position with no aortic insufficiency and mean gradient of 15 mmHg across the valve Thickened mitral valve leaflets with moderate mitral stenosis Moderate pulmonary hypertension Mild RV enlargement. Cardiology Consult: Elevated troponin, type II, secondary to sepsis. An acute coronary event has been ruled out. Treatment: 08/04 Rocephin IVP x 2; 08/05 Cefepime IVPB x1; 08/05 08/06 Cefepime IVPB Q12H Fluids: 08/04 0.9NS 500cc IV Bolus x 1; 08/04 08/06 0.9NS 75cc/hr Can you please clarify Type II? [ ] Type II NSTEMI, secondary to sepsis [ ] Other, please specify [ ] Unable to determine (Template Last Revised: June 2020) MTDD
[2024-08-06] MEDS: APIXABAN 5 MG TAB PO SCH (10:28)
[2024-08-06] MEDS: METOPROLOL TARTRATE 25 MG TAB PO SCH (10:28)
--- NOTE | 2024-08-06 11:00 | P.PN ---
Subjective HISTORY OF PRESENT ILLNESS: This is a 84-year-old male with a past medical history significant for hypertension, hyperlipidemia, and recent TAVR on 07/16/2024 at [facility]. 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 We have been asked to see the patient in consultation for his troponins. Patient examined at the bedside. Patient presented to the hospital with a chief complaint of shortness of breath and fatigue. Patient states on Monday morning he began to feel short of breath and very tired. He also reports having a cough without sputum production. He states on Monday he had fever and chills at home. The patient was found to be tachycardic and febrile upon admission. Initial viral panel was completed which was negative. Patient denies having any chest pain or pressure. Preliminary blood cultures are positive for gram-negative bacilli. Patient does report he underwent TAVR on 07/16/2024 at [facility]. He reports having a cardiac catheterization prior to his surgery and states he did not have any blockages. DIAGNOSTICS: - EKG reveals sinus tachycardia with incomplete right bundle branch block. No signs of acute ischemia. - Chest xray negative for acute process - Chest CTA: Negative for pulmonary embolism - Laboratory data: WBC 12.2. Hemoglobin 12.1. Platelet count 282. Sodium 135. Potassium 4.4. BUN 16. Creatinine 1.04. Troponin 0.040. 0.049. - Current home cardiac medications include Ziac 2.5-6.25 mg at night, rosuvastatin 10 mg at night, aspirin 81 mg daily, and losartan 25 mg daily. - No previous echocardiogram, stress test, or cardiac catheterization available in EMR for review 08/06/2024 Patient examined this morning at the bedside. Patient denies chest pain or pressure. Denies SOB. Patient went into afib with RVR overnight and was started on IV heparin. Echo completed revealing EF 60-65%, moderate pulmonary hypertension, trace MR, moderate MS, trace TR, and transcatheter valve in aortic position with no AI noted. PHYSICAL EXAM: VITAL SIGNS: Reviewed. GENERAL: Well-developed in no acute distress. HEENT: Head is normocephalic. Pupils are equal, round. Sclerae anicteric. Mucous membranes of the mouth are moist. Neck supple. No JVD or thyromegaly LUNGS: Respirations even and unlabored. Lungs essentially clear to auscultation bilaterally. HEART: Irregular rate and rhythm. S1 and S2 heard. ABDOMEN: Soft. Nondistended. Nontender. EXTREMITIES: Normal range of motion. No clubbing or cyanosis. Peripheral pulses intact. No lower extremity edema NEUROLOGIC: Awake and alert. Oriented x 3. ASSESSMENT: Sepsis (febrile, leukocytosis, tachycardic) Bacteremia, blood cultures positive for gram-negative bacilli New onset atrial fibrillation with RVR Elevated troponin, type II MD, secondary to sepsis History of TAVR, 07/16/2024, at [facility] Hypertension Hyperlipidemia PLAN: Discontinue Ziac Begin metoprolol 25mg BID Check TSH Discontinue IV heparin. Begin Eliquis 5mg BID Discontinue aspirin Continue telemetry monitoring Await results of blood cultures Further recommendations pending patient course Nurse practitioner note has been reviewed by physician. Signing provider agrees with the documented findings, assessment, and plan of care documented by REFUND CLERK as a scribe. Objective - Vital Signs Vital signs: Vital Signs Temp 98.1 F 08/06/24 07:00 Pulse 86 08/06/24 07:00 Resp 17 08/06/24 07:00 BP 115/66 08/06/24 07:00 Pulse Ox 97 08/06/24 07:00 FiO2 Intake & Output 08/05/24 08/06/24 08/06/24 18:59 06:59 18:59 Intake Total 339 236 Balance 339 236 Weight 101.605 kg Intake: Oral 339 236 Other: # Voids 3 3 - Labs CBC & Chem 7: 08/06/24 07:59 08/04/24 08:39 Labs: Abnormal Lab Results - Last 24 Hours (Table) 08/06/24 08/06/24 Range/Units 07:59 07:59 RBC 3.93 L (4.40-5.60) 10*6/uL Hgb 12.2 L (13.0-17.0) g/dL Hct 34.4 L (39.6-50.0) % Monocytes # 1.25 H (0.20-1.00) 10*3/uL APTT 38.8 H (22.0-30.0) sec Microbiology - Last 24 Hours (Table) 08/04/24 08:39 Blood Culture Gram Stain - Preliminary Blood Blood Culture - Preliminary 04/06/25 08:48 Blood Culture Gram Stain - Preliminary Blood
--- NOTE | 2024-08-06 11:54 | P.PN ---
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 Ongoing for the past 3-4 days. He reports a dry cough, mild lower extremity swelling, poor appetite and subjective chills. Denies any orthopnea. No sick contacts. He follows a Marketing Project Lead out of [facility] and Vice President Of Manufacturing Dr. García. He also reports chest pain, on and off for many years, described as chest tightness. He reports undergoing a cardiac cath recently prior to his TAVR and was told everything was normal. He reports a burning sensation in his right anterior thigh over the past 3-4 days as well. He denies any headache, nausea or vomiting, fever, palpitations, dizziness, changes in urination or bowel habits. In the ED he underwent extensive evaluation. BP 168/63, HR 117, T 100.2F, RR 24, 92% on RA. CBC, Coag panel, CMP significant for WBC 12.2, RBC 4.09, Hg 12.1, Hct 36.5, APTT 21.7, Na 135, glu 172. Lactic acid 2.3. D-Dimer 1.82. BNP 207. UA trace protein. Flu, RSV, COVID neg. CXR no acute process. CTA chest neg for PE. EKG sinus tachycardia. Patient is admitted for further workup and management. Cardiology was consulted for elevated troponin, recommended to obtain TTE, TTE showed normal biventricular systolic function, no aortic insufficiency, moderate pulmonary hypertension ;resume home medications, ACS has been ruled out. Blood cultures came back positive for gram-negative bacilli 2 out of 2, patient started on cefepime. Repeat blood cultures pending. Cepheid negative. 08/06: Overnight went to [facility] with RVR and was started on IV heparin, now switched to Eliquis 5 mg twice daily, started on metoprolol 25 mg twice daily, TSH came back elevated at 5.4, T4 pending Subjective: Feeling good today no active complaints, daughters present at bedside during exam Pertinent positives and negatives as discussed above, a complete review of systems was performed and all other systems are negative. Vitals Signs Reviewed. General: [nontoxic], [no distress], [appears at stated age] Derm: [warm], [dry] Head: [atraumatic], [normocephalic], [symmetric] Eyes: [EOMI], [no lid lag], [anicteric sclera] Mouth: [no lip lesion], [mucus membranes moist] Cardiovascular: [S1S2 reg], [ Lungs: [CTA bilateral], [no rhonchi, no rales] , [no accessory muscle use] Abdominal: [soft], [ nontender to palpation], [no guarding], [no appreciable organomegaly] Ext: [no gross muscle atrophy], [no edema], [no contractures] Neuro: [ CN II-XI grossly intact], [no focal neuro deficits] Psych: [Alert], [oriented], [appropriate affect] Data Reviewed CBC with normal WBC, hemoglobin 12.2, normal platelet count, TSH 5.4 Assessment and Plan: Sepsis secondary to gram-negative bacilli bacteremia, unknown source Lactic acidosis secondary to above -Cefepime 2 g every 12 hours SOT 08/05 -Repeat blood cultures, follow-up on final results -UA negative, Cepheid negative, recently noted some sneezing, watery nasal drainage, currently improved -Afebrile since 08/04/24 8 a.m., BP normotensive/hypertensive -Continue NS at 75 cc/h Elevated D-dimer: CTA negative for PE Paresthesia, likely paresthesia neurologic, PT OT BPH: Flomax 0.4 mg p.o. daily New onset paroxysmal A-fib with RVR -Cardiology following, appreciate recommendations -Continue telemetry -TSH elevated, T4 pending -Started Eliquis 5 mg twice daily, metoprolol 25 mg twice daily Elevated troponin, type II, likely in the settings of sepsis, ACS ruled out Recent TAVR 07/16/2024 HTN HLD Mild pulmonary hypertension -Cardiology consulted, appreciate recommendations -Continue Lipitor 20 mg p.o. daily, losartan 25 mg p.o. daily Emphysema: Chronic, not in acute exacerbation, continue Symbicort 2 inhalations twice daily, DuoNeb every 4 hours as needed for shortness of breath DVT ppx: Lovenox Code status: No code, okay with intubation Anticipated discharge place: TBD Anticipated discharge time: TBD Objective - Vital Signs Vital signs: Vital Signs Temp 98.1 F 08/06/24 07:00 Pulse 86 08/06/24 07:00 Resp 17 08/06/24 07:00 BP 115/66 08/06/24 07:00 Pulse Ox 97 08/06/24 07:00 FiO2 Intake & Output 08/05/24 08/06/24 08/06/24 18:59 06:59 18:59 Intake Total 339 236 Balance 339 236 Weight 101.605 kg Intake: Oral 339 236 Other: # Voids 3 3 - Labs CBC & Chem 7: 08/06/24 07:59 08/04/24 08:39 Labs: Abnormal Lab Results - Last 24 Hours (Table) 08/06/24 08/06/24 08/06/24 Range/Units 07:59 07:59 08:39 RBC 3.93 L (4.40-5.60) 10*6/uL Hgb 12.2 L (13.0-17.0) g/dL Hct 34.4 L (39.6-50.0) % Monocytes # 1.25 H (0.20-1.00) 10*3/uL APTT 38.8 H (22.0-30.0) sec TSH 5.410 H (0.465-4.680) mIU/L Microbiology - Last 24 Hours (Table) 08/04/24 08:39 Blood Culture Gram Stain - Preliminary Blood Blood Culture - Preliminary 08/04/24 08:48 Blood Culture Gram Stain - Preliminary Blood Blood Culture - Preliminary Gram Neg Bacilli
[2024-08-06 13:37] LABS: INR 1.19 sec (0.93-1.11); Prothrombin Time 13.2 sec (9.9-11.9)
[2024-08-06 14:36] LABS: T4, Free (Free Thyroxine) 1.51 ng/dL (0.78-2.19)
[2024-08-07 08:23] LABS: Basophils # (A) 0.02 X 10*3/uL (0.00-0.10); Basophils % (A) 0.3 %; Eosinophils # (A) 0.12 X 10*3/uL (0.04-0.35); Eosinophils % (A) 1.7 %; HCT 30.3 % (39.6-50.0); HGB 10.3 g/dL (13.0-17.0); Lymphocytes # (A) 0.99 X 10*3/uL (0.90-5.00); Lymphocytes % (A) 14.3 %; MCH 30.1 pg (27.0-32.0); MCV 88.6 FL (80.0-97.0); Monocytes # (A) 1.25 X 10*3/uL (0.20-1.00); Monocytes % (A) 18.1 %; NRBC Per 100 WBC 0 X 10*3/uL (0.00-0.01); Neutrophils # (A) 4.52 X 10*3/uL (1.80-7.70); Neutrophils % (A) 65.3 %; Platelet Count 209 X 10*3/uL (140-440); RBC 3.42 X 10*6/uL (4.40-5.60); RDW 13.8 % (11.5-14.5); WBC 6.92 X 10*3/uL (4.50-10.00)
[2024-08-07 08:27] LABS: BUN/Creat Ratio 11.22 Ratio (12.00-20.00); Blood Urea Nitrogen 10.1 mg/dL (9.0-27.0); Calcium 8.1 mg/dL (8.7-10.3); Carbon Dioxide 23.8 mmol/L (21.6-31.8); Chloride 106 mmol/L (96-109); Glucose 115 mg/dL (70-110); Potassium 3.2 mmol/L (3.5-5.5); Sodium 140 mmol/L (135-145)
[2024-08-07] MEDS: POTASSIUM CHLORIDE ER 20 MEQ TAB.ER PO STA (09:09)
--- NOTE | 2024-08-07 09:12 | P.PN ---
Subjective HISTORY OF PRESENT ILLNESS: This is a 84-year-old male with a past medical history significant for hypertension, hyperlipidemia, and recent TAVR on 07/16/2024 at [facility]. Patient follows with a atomic process engineer at [facility]. We have been asked to see the patient in consultation for his troponins. Patient examined at the bedside. Patient presented to the hospital with a chief complaint of shortness of breath and fatigue. Patient states on Monday morning he began to feel short of breath and very tired. He also reports having a cough without sputum production. He states on Monday he had fever and chills at home. The patient was found to be tachycardic and febrile upon admission. Initial viral panel was completed which was negative. Patient denies having any chest pain or pressure. Preliminary blood cultures are positive for gram-negative bacilli. Patient does report he underwent TAVR on 07/16/2024 at [facility]. He reports having a cardiac catheterization prior to his surgery and states he did not have any blockages. DIAGNOSTICS: - EKG reveals sinus tachycardia with incomplete right bundle branch block. No signs of acute ischemia. - Chest xray negative for acute process - Chest CTA: Negative for pulmonary embolism - Laboratory data: WBC 12.2. Hemoglobin 12.1. Platelet count 282. Sodium 135. Potassium 4.4. BUN 16. Creatinine 1.04. Troponin 0.040. 0.049. - Current home cardiac medications include Ziac 2.5-6.25 mg at night, rosuvastatin 10 mg at night, aspirin 81 mg daily, and losartan 25 mg daily. - No previous echocardiogram, stress test, or cardiac catheterization available in EMR for review 08/06/2024 Patient examined this morning at the bedside. Patient denies chest pain or pressure. Denies SOB. Patient went into afib with RVR overnight and was started on IV heparin. Echo completed revealing EF 60-65%, moderate pulmonary hypertension, trace MR, moderate MS, trace TR, and transcatheter valve in aortic position with no AI noted. 08/07/2024 Patient examined this morning to bedside. Patient currently denies chest pain or pressure. He denies shortness of breath. Vital signs are stable. He remains in atrial fibrillation with a heart rate in the 80s. PHYSICAL EXAM: VITAL SIGNS: Reviewed. GENERAL: Well-developed in no acute distress. HEENT: Head is normocephalic. Pupils are equal, round. Sclerae anicteric. Mucous membranes of the mouth are moist. Neck supple. No JVD or thyromegaly LUNGS: Respirations even and unlabored. Lungs essentially clear to auscultation bilaterally. HEART: Irregular rate and rhythm. S1 and S2 heard. ABDOMEN: Soft. Nondistended. Nontender. EXTREMITIES: Normal range of motion. No clubbing or cyanosis. Peripheral pulses intact. No lower extremity edema NEUROLOGIC: Awake and alert. Oriented x 3. ASSESSMENT: Sepsis (febrile, leukocytosis, tachycardic) Bacteremia, blood cultures positive for gram-negative bacilli New onset atrial fibrillation with RVR Elevated troponin, type II PR, secondary to sepsis History of TAVR, 07/16/2024, at [facility] Hypertension Hyperlipidemia PLAN: Continue current cardiac medications including Eliquis, Lipitor, losartan, and metoprolol Continue telemetry monitoring Await results of blood cultures Patient is currently stable from a cardiac standpoint with no further inpatient recommendations We will sign off. Please reconsult if needed Patient to follow-up postdischarge with his primary atomic process engineer at [facility] Nurse practitioner note has been reviewed by physician. Signing provider agrees with the documented findings, assessment, and plan of care documented by [facility] as a scribe. Objective - Vital Signs Vital signs: Vital Signs Temp 98.3 F 08/07/24 08:10 Pulse 95 08/07/24 08:10 Resp 15 08/07/24 08:10 BP 152/70 08/07/24 08:10 Pulse Ox 97 08/07/24 08:10 FiO2 Intake & Output 08/06/24 08/07/24 08/07/24 18:59 06:59 18:59 Intake Total 236 240 Balance 236 240 Intake: Oral 236 240 Other: # Voids 2 2 - Labs CBC & Chem 7: 08/07/24 04:13 08/07/24 04:13 Labs: Abnormal Lab Results - Last 24 Hours (Table) 08/06/24 08/06/24 08/07/24 Range/Units 07:59 08:39 04:13 RBC 3.42 L (4.40-5.60) X 10*6/uL Hgb 10.3 L (13.0-17.0) g/dL Hct 30.3 L (39.6-50.0) % Monocytes # 1.25 H (0.20-1.00) X 10*3/uL PT 13.2 H (9.9-11.9) sec INR 1.19 H (0.93-1.11) sec Potassium (3.5-5.5) mmol/L BUN/Creatinine Ratio (12.00-20.00) Ratio Glucose (70-110) mg/dL Calcium (8.7-10.3) mg/dL TSH 5.410 H (0.465-4.680) mIU/L 08/07/24 Range/Units 04:13 RBC (4.40-5.60) X 10*6/uL Hgb (13.0-17.0) g/dL Hct (39.6-50.0) % Monocytes # (0.20-1.00) X 10*3/uL PT (9.9-11.9) sec INR (0.93-1.11) sec Potassium 3.2 L (3.5-5.5) mmol/L BUN/Creatinine Ratio 11.22 L (12.00-20.00) Ratio Glucose 115 H (70-110) mg/dL Calcium 8.1 L (8.7-10.3) mg/dL TSH (0.465-4.680) mIU/L Microbiology - Last 24 Hours (Table) 08/05/24 15:04 Blood Culture - Preliminary Blood 08/04/24 08:39 Blood Culture Gram Stain - Preliminary Blood Blood Culture - Preliminary 08/04/24 08:48 Blood Culture Gram Stain - Preliminary Blood Blood Culture - Preliminary Gram Neg Bacilli
--- NOTE | 2024-08-07 13:32 | P.PN ---
Subjective Progress Note Date: 08/07/24 Hospital Course: 84 year old M with recent TAVR on 07/16 at [facility], BPH, HLD, GERD, HTN, emphysema presents to the ED for shortness of breath. Ongoing for the past 3-4 days. He reports a dry cough, mild lower extremity swelling, poor appetite and subjective chills. Denies any orthopnea. No sick contacts. He follows a Supervisor Machine Workers out of [facility] and [place] Dr. García. He also reports chest pain, on and off for many years, described as chest tightness. He reports undergoing a cardiac cath recently prior to his TAVR and was told everything was normal. He reports a burning sensation in his right anterior thigh over the past 3-4 days as well. He denies any headache, nausea or vomiting, fever, palpitations, dizziness, changes in urination or bowel habits. In the ED he underwent extensive evaluation. BP 168/63, HR 117, T 100.2F, RR 24, 92% on RA. CBC, Coag panel, CMP significant for WBC 12.2, RBC 4.09, Hg 12.1, Hct 36.5, APTT 21.7, Na 135, glu 172. Lactic acid 2.3. D-Dimer 1.82. BNP 207. UA trace protein. Flu, RSV, COVID neg. CXR no acute process. CTA chest neg for PE. EKG sinus tachycardia. Patient is admitted for further workup and management. Cardiology was consulted for elevated troponin, recommended to obtain TTE, TTE showed normal biventricular systolic function, no aortic insufficiency, moderate pulmonary hypertension ;resume home medications, ACS has been ruled out. Blood cultures came back positive for gram-negative bacilli 2 out of 2, patient started on cefepime. Repeat blood cultures pending. Cepheid negative. 08/06: Overnight went to [facility] with RVR and was started on IV heparin, now switched to Eliquis 5 mg twice daily, started on metoprolol 25 mg twice daily, TSH came back elevated at 5.4, T4 pending 08/07, continues to be afebrile, heart rate is controlled, no particular complaints. Blood cultures positive for Pasteurella multocida, per literature review, and frequently was associated with TAVR i.e. with an incidence ranging from 0.2% to 3.1%, continue cefepime for now, consulted ID, notified cardiology Subjective: Feeling good today no active complaints, daughters present at bedside during exam Pertinent positives and negatives as discussed above, a complete review of systems was performed and all other systems are negative. Vitals Signs Reviewed. General: [nontoxic], [no distress], [appears at stated age] Derm: [warm], [dry] Head: [atraumatic], [normocephalic], [symmetric] Eyes: [EOMI], [no lid lag], [anicteric sclera] Mouth: [no lip lesion], [mucus membranes moist] Cardiovascular: [S1S2 reg], [ Lungs: [CTA bilateral], [no rhonchi, no rales] , [no accessory muscle use] Abdominal: [soft], [ nontender to palpation], [no guarding], [no appreciable organomegaly] Ext: [no gross muscle atrophy], [no edema], [no contractures] Neuro: [ CN II-XI grossly intact], [no focal neuro deficits] Psych: [Alert], [oriented], [appropriate affect] Data Reviewed WBC normal, hemoglobin 10.3 , platelet count normal, sodium normal, potassium 3.2, creatinine rosalina Assessment and Plan: 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 daily New onset paroxysmal A-fib with RVR -Cardiology following, appreciate recommendations -Continue telemetry -TSH elevated, T4 pending -Started Eliquis 5 mg twice daily, metoprolol 25 mg twice daily Elevated troponin, type II, likely in the settings of sepsis, ACS ruled out Recent TAVR 07/16/2024 HTN HLD Mild pulmonary hypertension -Cardiology consulted, appreciate recommendations -Continue Lipitor 20 mg p.o. daily, losartan 25 mg p.o. daily Emphysema: Chronic, not in acute exacerbation, continue Symbicort 2 inhalations twice daily, DuoNeb every 4 hours as needed for shortness of breath DVT ppx: Lovenox Code status: No code, okay with intubation Anticipated discharge place: home Anticipated discharge time: TBD Objective - Vital Signs Vital signs: Vital Signs Temp 98.3 F 08/07/24 08:10 Pulse 95 08/07/24 08:10 Resp 15 08/07/24 08:10 BP 152/70 08/07/24 08:10 Pulse Ox 97 08/07/24 08:10 FiO2 Intake & Output 08/06/24 08/07/24 08/07/24 18:59 06:59 18:59 Intake Total 236 240 Balance 236 240 Intake: Oral 236 240 Other: # Voids 2 2 - Labs CBC & Chem 7: 08/07/24 04:13 08/07/24 04:13 Labs: Abnormal Lab Results - Last 24 Hours (Table) 08/06/24 08/07/24 08/07/24 Range/Units 07:59 04:13 04:13 RBC 3.42 L (4.40-5.60) X 10*6/uL Hgb 10.3 L (13.0-17.0) g/dL Hct 30.3 L (39.6-50.0) % Monocytes # 1.25 H (0.20-1.00) X 10*3/uL PT 13.2 H (9.9-11.9) sec INR 1.19 H (0.93-1.11) sec Potassium 3.2 L (3.5-5.5) mmol/L BUN/Creatinine Ratio 11.22 L (12.00-20.00) Ratio Glucose 115 H (70-110) mg/dL Calcium 8.1 L (8.7-10.3) mg/dL Microbiology - Last 24 Hours (Table) 08/04/24 08:48 Blood Culture Gram Stain - Final Blood Blood Culture - Final Pasteurella multocida 08/04/24 08:39 Blood Culture Gram Stain - Final Blood Blood Culture - Preliminary 08/05/24 15:04 Blood Culture - Preliminary Blood
--- NOTE | 2024-08-07 23:04 | P.CONS ---
History of Present Illness - Reason for Consult Consult date: 08/07/24 Pasteurella bacteremia Requesting physician: Angelique Lizarraga - Chief Complaint Chills and shortness of breath x 1 day on admission - History of Present Illness Patient is a 84-year-old male with a past medical history significant for hypertension hyperlipidemia and did have a TAVR procedure on 07/16/2024 also with a history of bilateral hip replacement presenting to the hospital 3 days ago for evaluation of increasing shortness of breath in addition to feeling ch illed with rigors patient denies having any chest pain or significant cough no sputum production patient denies having any headache or URI symptoms no nausea no vomiting no abdominal pain or any diarrhea on presentation to the hospital he did have low-grade fever 100.2 F, no fever have been recorded since then patient was tachycardic at 1 point but not hypotensive or hypoxic no need for supplemental oxygen patient did have a white count of 12.2 on admission with a left shift creatinine has been normal electrolytes potassium slightly low at 3.2 rest of the electrolytes are normal liver enzymes normal did have a negative UA influenza RSV COVID testing negative patient did have a chest x-ray no acute cardiopulmonary process CT angiogram of the chest was negative for PE and did not show any pneumonia he did have an echocardiogram which did show some mitral wall thickening and trace regurgitation patient 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, patient being treated with cefepime infectious disease was consulted today because of his positive blood culture the patient has been in the hospital for 3 days, patient currently do not have any open wound he did have 2 dogs in his house but mention no history of any dog bites or scratch and do not have any cat Review of Systems Positive point and negatives has been mentioned in the HPI, complete review of systems was performed and all other systems are negative Past Medical History Past Medical History: Hyperlipidemia, Hypertension History of Any Multi-Drug Resistant Organisms: None Reported Past Surgical History: Joint Replacement, Orthopedic Surgery Additional Past Surgical History / Comment(s): heart valve replacemnt 07/16/24; Bilat hip replacement 2013 Past Anesthesia/Blood Transfusion Reactions: No Reported Reaction Past Psychological History: No Psychological Hx Reported Smoking Status: Former smoker Past Alcohol Use History: None Reported Past Drug Use History: None Reported Medications and Allergies Home Medications Medication Instructions Recorded Confirmed Type Acetaminophen [Tylenol Arthritis] 650 mg PO HS 08/04/24 08/04/24 History Arginine [l-Arginine] 500 mg PO DAILY 08/04/24 08/04/24 History Aspirin EC [Ecotrin Low Dose] 81 mg PO HS 08/04/24 08/04/24 History Budesonide/Formoterol Fumarate 2 puff INHALATION RT-BID 08/04/24 08/04/24 History [Symbicort 160-4.5 Mcg Inhaler] Co-Q-10 (Unknown Dose) 1 tab PO DAILY 08/04/24 08/04/24 History L.acidoph,Paracasei, B.lactis 1 cap PO DAILY 08/04/24 08/04/24 History [Probiotic] Levocetirizine Dihydrochloride 5 mg PO DAILY 08/04/24 08/04/24 History [Xyzal] Losartan [Cozaar] 25 mg PO DAILY 08/04/24 08/04/24 History Melatonin 5 mg PO HS 08/04/24 08/04/24 History Multivitamins, Thera [Multivitamin 1 tab PO DAILY 08/04/24 08/04/24 History (formulary)] Pantoprazole [Protonix] 40 mg PO DAILY 08/04/24 08/04/24 History Psyllium Husk [Fiber Capsule] 0.4 gm PO DAILY 08/04/24 08/04/24 History Rosuvastatin [Crestor] 10 mg PO HS 08/04/24 08/04/24 History Tamsulosin [Flomax] 0.4 mg PO HS 08/04/24 08/04/24 History Apixaban [Eliquis] 5 mg PO BID #60 tab 08/07/24 Rx Metoprolol Tartrate [Lopressor] 25 mg PO BID #60 tab 08/07/24 Rx cefuroxime axetiL [Ceftin] 500 mg PO BID #28 tab 08/09/24 Rx Allergies Allergy/AdvReac Type Severity Reaction Status Date / Time acetaminophen [From [place]] AdvReac Hallucinati Verified 08/04/24 21:51 ons hydrocodone [From [place]] AdvReac Hallucinati Verified 08/04/24 21:51 ons Physical Exam Vitals: Vital Signs Temp Pulse Resp BP Pulse Ox 08/07/24 08:10 98.3 F 95 15 152/70 97 08/07/24 08:00 89 08/07/24 07:58 95 08/07/24 01:39 97.5 F L 85 17 157/79 94 L 08/06/24 19:39 97.9 F 72 18 128/66 95 08/06/24 14:45 97.8 F 83 16 117/72 97 08/06/24 14:00 83 16 Intake and Output 08/06/24 08/07/24 08/07/24 22:59 06:59 14:59 Intake Total 240 Balance 240 Intake: Oral 240 Other: # Voids 3 2 GENERAL DESCRIPTION: Elderly male up in the chair, no distress. No tachypnea or accessory muscle of respiration use. HEENT: Shows Pallor , no scleral icterus. Oral mucous membrane is dry. No pharyngeal erythema or thrush NECK: Trachea central, no thyromegaly. LUNGS: Unlabored breathing. Clear to auscultation anteriorly. No wheeze or crackle. HEART: S1, S2, regular rate and rhythm. ABDOMEN: Soft, no tenderness , guarding or rigidity, no organomegaly EXTREMITIES: No edema of feet. SKIN: No rash, no masses palpable. NEUROLOGICAL: The patient is awake, alert, oriented x3, mood and affect normal. Results CBC & Chem 7: 08/08/24 04:09 08/08/24 04:09 Labs: Abnormal Lab Results - Last 24 Hours (Table) 08/07/24 08/07/24 Range/Units 04:13 04:13 RBC 3.42 L (4.40-5.60) X 10*6/uL Hgb 10.3 L (13.0-17.0) g/dL Hct 30.3 L (39.6-50.0) % Monocytes # 1.25 H (0.20-1.00) X 10*3/uL Potassium 3.2 L (3.5-5.5) mmol/L BUN/Creatinine Ratio 11.22 L (12.00-20.00) Ratio Glucose 115 H (70-110) mg/dL Calcium 8.1 L (8.7-10.3) mg/dL Microbiology - Last 24 Hours (Table) 08/04/24 08:48 Blood Culture Gram Stain - Final Blood Blood Culture - Final Pasteurella multocida 08/04/24 08:39 Blood Culture Gram Stain - Final Blood Blood Culture - Preliminary 08/05/24 15:04 Blood Culture - Preliminary Blood Assessment and Plan (1) Sepsis Current Visit: Yes Status: Acute Code(s): A41.9 - SEPSIS, UNSPECIFIED ORGANISM SNOMED Code(s): 02082801 (2) Pasteurella infection Current Visit: Yes Status: Acute Code(s): A28.0 - PASTEURELLOSIS SNOMED Code(s): 04775072 (3) Bacteremia Current Visit: Yes Status: Acute Code(s): R78.81 - BACTEREMIA SNOMED Code(s): 0485977 Plan: 1patient with initial presentation to hospital with sepsis in this patient who did have fever tachycardia elevated white count meeting criteria for SIRS now with evidence of Pasteurella bacteremia with no clear focus of this bacteremia on initial investigation with a negative chest x-ray UA has been negative and CT general of the chest was negative for any consolidation patient currently do not have any open wound joint swelling or cellulitis and his abdomen is soft mental examination keeping in mind his bacteremia 2 out of 2 on admission and thickening of the mitral valve seen on the echocardiogram with recent TAVR procedure patient would likely benefit from LUCIAN to rule out infective endocarditis with a likely theology of this bacteremia 2-blood culture repeat has been negative so far 3-patient be treated with cefepime discussed with the micro lab to get the sensitivities of this pathogen for more definitive antibiotic therapy on discharge which may be IV depending upon the final source of this bacteremia Multiple question concern answered We will follow on clinical condition and cultures to further adjust medication if needed Thank you for this consultation we will follow the patient along with you Dictation was produced using [employer] dictation software. please excuse any grammatical, word or spelling errors. Time with Patient: Greater than 30
[2024-08-08 08:34] LABS: Basophils # (A) 0.05 X 10*3/uL (0.00-0.10); Basophils % (A) 0.5 %; Eosinophils # (A) 0.16 X 10*3/uL (0.04-0.35); Eosinophils % (A) 1.7 %; HCT 32.3 % (39.6-50.0); HGB 11.1 g/dL (13.0-17.0); Lymphocytes # (A) 1.36 X 10*3/uL (0.90-5.00); Lymphocytes % (A) 14.8 %; MCH 30.4 pg (27.0-32.0); MCHC 34.4 g/dL (32.0-37.0); MCV 88.5 FL (80.0-97.0); Mean Platelet Volume 9.8 FL (9.5-12.2); NRBC Per 100 WBC 0 X 10*3/uL (0.00-0.01); Neutrophils # (A) 6.41 X 10*3/uL (1.80-7.70); Neutrophils % (A) 69.6 %; Platelet Count 247 X 10*3/uL (140-440); RBC 3.65 X 10*6/uL (4.40-5.60); RDW 13.6 % (11.5-14.5); WBC 9.22 X 10*3/uL (4.50-10.00)
[2024-08-08 08:53] LABS: Blood Urea Nitrogen 10.1 mg/dL (9.0-27.0); Calcium 8.3 mg/dL (8.7-10.3); Carbon Dioxide 26.8 mmol/L (21.6-31.8); Chloride 105 mmol/L (96-109); Glucose 134 mg/dL (70-110); Potassium 3.5 mmol/L (3.5-5.5); Sodium 139 mmol/L (135-145)
[2024-08-08 08:57] LABS: Erythrocyte Sedimentation Rate 36 mm/Hr (0-20)
[2024-08-08] MEDS ORDERED: MIDAZOLAM 2 MG/2 ML VIAL IV PRN (10:47)
[2024-08-08] MEDS ORDERED: BENZOCAINE SPRAY 1 EACH MM PRN (10:47)
[2024-08-08] MEDS ORDERED: fentaNYL (PF) 50 MCG/ML 5 ML AMP IVP PRN (10:47)
--- NOTE | 2024-08-08 10:47 | P.PN ---
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 Patient follows with a principal process engineer at [place]. We have been asked to see the patient in consultation for his troponins. Patient examined at the bedside. Patient presented to the hospital with a chief complaint of shortness of breath and fatigue. Patient states on Monday morning he began to feel short of breath and very tired. He also reports having a cough without sputum production. He states on Monday he had fever and chills at home. The patient was found to be tachycardic and febrile upon admission. Initial viral panel was completed which was negative. Patient denies having any chest pain or pressure. Preliminary blood cultures are positive for gram-negative bacilli. Patient does report he underwent TAVR on 07/16/2024 at [facility]. He reports having a cardiac catheterization prior to his surgery and states he did not have any blockages. DIAGNOSTICS: - EKG reveals sinus tachycardia with incomplete right bundle branch block. No signs of acute ischemia. - Chest xray negative for acute process - Chest CTA: Negative for pulmonary embolism - Laboratory data: WBC 12.2. Hemoglobin 12.1. Platelet count 282. Sodium 135. Potassium 4.4. BUN 16. Creatinine 1.04. Troponin 0.040. 0.049. - Current home cardiac medications include Ziac 2.5-6.25 mg at night, rosuvastatin 10 mg at night, aspirin 81 mg daily, and losartan 25 mg daily. - No previous echocardiogram, stress test, or cardiac catheterization available in EMR for review 08/06/2024 Patient examined this morning at the bedside. Patient denies chest pain or pressure. Denies SOB. Patient went into afib with RVR overnight and was started on IV heparin. Echo completed revealing EF 60-65%, moderate pulmonary hypertension, trace MR, moderate MS, trace TR, and transcatheter valve in aortic position with no AI noted. 08/07/2024 Patient examined this morning to bedside. Patient currently denies chest pain or pressure. He denies shortness of breath. Vital signs are stable. He remains in atrial fibrillation with a heart rate in the 80s. 08/08/2024 Cardiology was reconsulted for LUCIAN request. Patient examined this morning at the bedside. Patient currently denies chest pain or pressure. He denies shortness of breath. Vital signs are stable. PHYSICAL EXAM: VITAL SIGNS: Reviewed. GENERAL: Well-developed in no acute distress. HEENT: Head is normocephalic. Pupils are equal, round. Sclerae anicteric. Mucous membranes of the mouth are moist. Neck supple. No JVD or thyromegaly LUNGS: Respirations even and unlabored. Lungs essentially clear to auscultation bilaterally. HEART: Irregular rate and rhythm. S1 and S2 heard. ABDOMEN: Soft. Nondistended. Nontender. EXTREMITIES: Normal range of motion. No clubbing or cyanosis. Peripheral pulses intact. No lower extremity edema NEUROLOGIC: Awake and alert. Oriented x 3. ASSESSMENT: Sepsis (febrile, leukocytosis, tachycardic) Bacteremia, blood cultures positive for Pasteurella Multocida New onset atrial fibrillation with RVR Elevated troponin, type II NE, secondary to sepsis History of TAVR, 07/16/2024, at [facility] Hypertension Hyperlipidemia PLAN: Continue current cardiac medications including Eliquis, Lipitor, losartan, and metoprolol Continue telemetry monitoring N.p.o. at midnight Patient will undergo LUCIAN tomorrow with Dr. Powers Patient to follow-up postdischarge with his primary principal process engineer at [place] Nurse practitioner note has been reviewed by physician. Signing provider agrees with the documented findings, assessment, and plan of care documented by LENS MOUNTER as a scribe. Objective - Vital Signs Vital signs: Vital Signs Temp 97.8 F 08/08/24 07:00 Pulse 94 08/08/24 07:00 Resp 17 08/08/24 07:00 BP 146/72 08/08/24 07:00 Pulse Ox 96 08/08/24 07:00 FiO2 Intake & Output 08/07/24 08/08/24 08/08/24 18:59 06:59 18:59 Intake Total 420 240 Balance 420 240 Weight 101.605 kg Intake: Oral 420 240 Other: # Voids 4 2 # Bowel Movements 0 - Labs CBC & Chem 7: 08/08/24 04:09 08/08/24 04:09 Labs: Abnormal Lab Results - Last 24 Hours (Table) 08/08/24 08/08/24 Range/Units 04:09 04:09 RBC 3.65 L (4.40-5.60) X 10*6/uL Hgb 11.1 L (13.0-17.0) g/dL Hct 32.3 L (39.6-50.0) % Monocytes # 1.20 H (0.20-1.00) X 10*3/uL ESR 36 H (0-20) mm/Hr BUN/Creatinine Ratio 10.10 L (12.00-20.00) Ratio Glucose 134 H (70-110) mg/dL Calcium 8.3 L (8.7-10.3) mg/dL C-Reactive Protein 4.50 H (0.00-0.80) mg/dL Microbiology - Last 24 Hours (Table) 08/05/24 15:04 Blood Culture - Preliminary Blood 08/04/24 08:48 Blood Culture Gram Stain - Final Blood Blood Culture - Final Pasteurella multocida 08/04/24 08:39 Blood Culture Gram Stain - Final Blood Blood Culture - Preliminary
--- NOTE | 2024-08-08 10:59 | P.PN ---
Subjective Progress Note Date: 08/08/24 Hospital Course: 84 year old M with recent TAVR on 07/16 at [facility], BPH, HLD, GERD, HTN, emphysema presents to the ED for shortness of breath. Ongoing for the past 3-4 days. He reports a dry cough, mild lower extremity swelling, poor appetite and subjective chills. Denies any orthopnea. No sick contacts. He follows a Manager Of Compensation out of [facility] and Front Desk Dr. García. He also reports chest pain, on and off for many years, described as chest tightness. He reports undergoing a cardiac cath recently prior to his TAVR and was told everything was normal. He reports a burning sensation in his right anterior thigh over the past 3-4 days as well. He denies any headache, nausea or vomiting, fever, palpitations, dizziness, changes in urination or bowel habits. In the ED he underwent extensive evaluation. BP 168/63, HR 117, T 100.2F, RR 24, 92% on RA. CBC, Coag panel, CMP significant for WBC 12.2, RBC 4.09, Hg 12.1, Hct 36.5, APTT 21.7, Na 135, glu 172. Lactic acid 2.3. D-Dimer 1.82. BNP 207. UA trace protein. Flu, RSV, COVID neg. CXR no acute process. CTA chest neg for PE. EKG sinus tachycardia. Patient is admitted for further workup and management. Cardiology was consulted for elevated troponin, recommended to obtain TTE, TTE showed normal biventricular systolic function, no aortic insufficiency, moderate pulmonary hypertension ;resume home medications, ACS has been ruled out. Blood cultures came back positive for gram-negative bacilli 2 out of 2, patient started on cefepime. Repeat blood cultures pending. Cepheid negative. 08/06: Overnight went to [facility] with RVR and was started on IV heparin, now switched to Eliquis 5 mg twice daily, started on metoprolol 25 mg twice daily, TSH came back elevated at 5.4, T4 pending 08/07, continues to be afebrile, heart rate is controlled, no particular complaints. Blood cultures positive for Pasteurella multocida, per literature review, and frequently was associated with TAVR i.e. with an incidence ranging from 0.2% to 3.1%, continue cefepime for now, consulted ID, notified cardiology 08/08: Plan for LUCIAN on 08/09 Subjective: Feeling good today no active complaints, daughter present at bedside during exam Pertinent positives and negatives as discussed above, a complete review of systems was performed and all other systems are negative. Vitals Signs Reviewed. General: [nontoxic], [no distress], [appears at stated age] Derm: [warm], [dry] Head: [atraumatic], [normocephalic], [symmetric] Eyes: [EOMI], [no lid lag], [anicteric sclera] Mouth: [no lip lesion], [mucus membranes moist] Cardiovascular: [S1S2 reg], [ Lungs: [CTA bilateral], [no rhonchi, no rales] , [no accessory muscle use] Abdominal: [soft], [ nontender to palpation], [no guarding], [no appreciable organomegaly] Ext: [no gross muscle atrophy], [no edema], [no contractures] Neuro: [ CN II-XI grossly intact], [no focal neuro deficits] Psych: [Alert], [oriented], [appropriate affect] Data Reviewed WBC normal, hemoglobin 11.1, normal platelet count, sodium, potassium, bicarb, creatinine normal, CRP 4.5, ESR 26 Assessment and Plan: 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 daily New onset paroxysmal A-fib with RVR -Cardiology following, appreciate recommendations -Continue telemetry -TSH elevated, T4 nomral-subclinical hypothyroidism, needs to recheck levels in 4 to 6 weeks as outpatient -Started Eliquis 5 mg twice daily, metoprolol 25 mg twice daily Elevated troponin, type II, likely in the settings of sepsis, ACS ruled out Recent TAVR 07/16/2024 HTN HLD Mild pulmonary hypertension -Cardiology consulted, appreciate recommendations -Continue Lipitor 20 mg p.o. daily, losartan 25 mg p.o. daily Emphysema: Chronic, not in acute exacerbation, continue Symbicort 2 inhalations twice daily, DuoNeb every 4 hours as needed for shortness of breath DVT ppx: Lovenox Code status: No code, okay with intubation Anticipated discharge place: home Anticipated discharge time: TBD Objective - Vital Signs Vital signs: Vital Signs Temp 97.8 F 08/08/24 07:00 Pulse 94 08/08/24 07:00 Resp 17 08/08/24 09:32 BP 146/72 08/08/24 07:00 Pulse Ox 96 08/08/24 07:00 FiO2 Intake & Output 08/07/24 08/08/24 08/08/24 18:59 06:59 18:59 Intake Total 420 240 Balance 420 240 Weight 101.605 kg Intake: Oral 420 240 Other: Voiding Method Toilet # Voids 4 2 # Bowel Movements 0 - Labs CBC & Chem 7: 08/08/24 04:09 08/08/24 04:09 Labs: Abnormal Lab Results - Last 24 Hours (Table) 08/08/24 08/08/24 Range/Units 04:09 04:09 RBC 3.65 L (4.40-5.60) X 10*6/uL Hgb 11.1 L (13.0-17.0) g/dL Hct 32.3 L (39.6-50.0) % Monocytes # 1.20 H (0.20-1.00) X 10*3/uL ESR 36 H (0-20) mm/Hr BUN/Creatinine Ratio 10.10 L (12.00-20.00) Ratio Glucose 134 H (70-110) mg/dL Calcium 8.3 L (8.7-10.3) mg/dL C-Reactive Protein 4.50 H (0.00-0.80) mg/dL Microbiology - Last 24 Hours (Table) 08/05/24 15:04 Blood Culture - Preliminary Blood 08/04/24 08:48 Blood Culture Gram Stain - Final Blood Blood Culture - Final Pasteurella multocida 08/04/24 08:39 Blood Culture Gram Stain - Final Blood Blood Culture - Preliminary
[2024-08-09 07:46] VITALS: RESP 17
[2024-08-09] MEDS: IV FLUID CONTINUATION 150 ML IV ONE (11:25)
[2024-08-09] MEDS: BENZOCAINE SPRAY 1 EACH MUCOUS MEM ONE ×2 (11:25→11:30)
[2024-08-09] MEDS: fentaNYL (PF) 50 MCG/ML 2 ML AMP IVP ONE (11:30)
[2024-08-09] MEDS: MIDAZOLAM 2 MG/2 ML VIAL IVP ONE (11:30)
--- NOTE | 2024-08-09 14:36 | P.DS ---
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 Ongoing for the past 3-4 days. He reports a dry cough, mild lower extremity swelling, poor appetite and subjective chills. Denies any orthopnea. No sick contacts. He follows a Acid Pump Operator out of [facility] and Gasket Maker Dr. García. He also reports chest pain, on and off for many years, described as chest tightness. He reports undergoing a cardiac cath recently prior to his TAVR and was told everything was normal. He reports a burning sensation in his right anterior thigh over the past 3-4 days as well. He denies any headache, nausea or vomiting, fever, palpitations, dizziness, changes in urination or bowel habits. In the ED he underwent extensive evaluation. BP 168/63, HR 117, T 100.2F, RR 24, 92% on RA. CBC, Coag panel, CMP significant for WBC 12.2, RBC 4.09, Hg 12.1, Hct 36.5, APTT 21.7, Na 135, glu 172. Lactic acid 2.3. D-Dimer 1.82. BNP 207. UA trace protein. Flu, RSV, COVID neg. CXR no acute process. CTA chest neg for PE. EKG sinus tachycardia. Patient is admitted for further workup and management. Cardiology was consulted for elevated troponin, recommended to obtain TTE, TTE showed normal biventricular systolic function, no aortic insufficiency, moderate pulmonary hypertension ;resume home medications, ACS has been ruled out. Blood cultures came back positive for gram-negative bacilli 2 out of 2, patient started on cefepime. Repeat blood cultures pending. Cepheid negative. 08/06: Overnight went to [facility] with RVR and was started on IV heparin, now switched to Eliquis 5 mg twice daily, started on metoprolol 25 mg twice daily, TSH elevated, T4 nomral-subclinical hypothyroidism, needs to recheck levels in 4 to 6 weeks as outpatient . Blood cultures positive for Pasteurella multocida, per literature review, and frequently was associated with TAVR i.e. with an incidence ranging from 0.2% to 3.1%, continue cefepime for now, consulted ID, notified cardiology. LUCIAN 08/09 showed no signs of endocarditis -confirmed with cardiology, patient was cleared for discharge by ID, ID prescribed Ceftin 500 twice daily for 2 weeks, follow-up with primary care physician, ID, primary distributed generation project manager Patient seen and examined at bedside. NO complaints Vital signs reviewed and stable. General: [nontoxic], [no distress], [appears at stated age] Derm: [warm], [dry] Head: [atraumatic], [normocephalic], [symmetric] Eyes: [EOMI], [no lid lag], [anicteric sclera] Mouth: [no lip lesion], [mucus membranes moist] Cardiovascular: [S1S2 reg], [no murmur] Lungs: [CTA bilateral], [no rhonchi, no rales] , [no accessory muscle use] Abdominal: [soft], [ nontender to palpation], [no guarding], [no appreciable organomegaly] Ext: [no gross muscle atrophy], [no edema], [no contractures] Neuro: [ CN II-XI grossly intact], [no focal neuro deficits] Psych: [Alert], [oriented], [appropriate affect] A total of 40 minutes of time were spent preparing this complex discharge summary. Patient was discharged on 08/09 Plan - Discharge Summary Discharge Rx Participant: No New Discharge Prescriptions: New Metoprolol Tartrate [Lopressor] 25 mg PO BID #60 tab Apixaban [Eliquis] 5 mg PO BID #60 tab cefuroxime axetiL [Ceftin] 500 mg PO BID #28 tab Continue L.acidoph,Paracasei, B.lactis [Probiotic] 1 cap PO DAILY Melatonin 5 mg PO HS Co-Q-10 (Unknown Dose) 1 tab PO DAILY Losartan [Cozaar] 25 mg PO DAILY Levocetirizine Dihydrochloride [Xyzal] 5 mg PO DAILY Tamsulosin [Flomax] 0.4 mg PO HS Rosuvastatin [Crestor] 10 mg PO HS Arginine [l-Arginine] 500 mg PO DAILY Acetaminophen [Tylenol Arthritis] 650 mg PO HS Psyllium Husk [Fiber Capsule] 0.4 gm PO DAILY Multivitamins, Thera [Multivitamin (formulary)] 1 tab PO DAILY Aspirin EC [Ecotrin Low Dose] 81 mg PO HS Pantoprazole [Protonix] 40 mg PO DAILY Budesonide/Formoterol Fumarate [Symbicort 160-4.5 Mcg Inhaler] 2 puff INHALATION RT-BID Discontinued Bisoprolol-Hctz 2.5-6.25 mg [Ziac 2.5-6.25 MG] 1 tab PO HS Discharge Medication List Acetaminophen [Tylenol Arthritis] 650 mg PO HS 08/04/24 [History] Arginine [l-Arginine] 500 mg PO DAILY 08/04/24 [History] Aspirin EC [Ecotrin Low Dose] 81 mg PO HS 08/04/24 [History] Budesonide/Formoterol Fumarate [Symbicort 160-4.5 Mcg Inhaler] 2 puff INHALATION RT-BID 08/04/24 [History] Co-Q-10 (Unknown Dose) 1 tab PO DAILY 08/04/24 [History] L.acidoph,Paracasei, B.lactis [Probiotic] 1 cap PO DAILY 08/04/24 [History] Levocetirizine Dihydrochloride [Xyzal] 5 mg PO DAILY 08/04/24 [History] Losartan [Cozaar] 25 mg PO DAILY 08/04/24 [History] Melatonin 5 mg PO HS 08/04/24 [History] Multivitamins, Thera [Multivitamin (formulary)] 1 tab PO DAILY 08/04/24 [History] Pantoprazole [Protonix] 40 mg PO DAILY 08/04/24 [History] Psyllium Husk [Fiber Capsule] 0.4 gm PO DAILY 08/04/24 [History] Rosuvastatin [Crestor] 10 mg PO HS 08/04/24 [History] Tamsulosin [Flomax] 0.4 mg PO HS 08/04/24 [History] Apixaban [Eliquis] 5 mg PO BID #60 tab 08/07/24 [Rx] Metoprolol Tartrate [Lopressor] 25 mg PO BID #60 tab 08/07/24 [Rx] cefuroxime axetiL [Ceftin] 500 mg PO BID #28 tab 08/09/24 [Rx] Follow up Appointment(s)/Referral(s): Sherif Tejeda MD [Primary Care Provider] - 1-2 days Fanny Aj MD [STAFF PHYSICIAN] - 1 Week Activity/Diet/Wound Care/Special Instructions: Please, follow-up with your primary care physician and your distributed generation project manager subclinical hypothyroidism, needs to recheck levels in 4 to 6 weeks as outpatient Discharge Disposition: HOME SELF-CARE
[2024-08-09 14:47] VITALS: TEMP 97.5
[2024-08-09 14:48] VITALS: BP 139/84
[2024-08-09 14:49] VITALS: PULSE 80
--- NOTE | 2024-08-09 15:25 | P.PN ---
Subjective Progress Note Date: 08/08/24 Principal diagnosis: Reason for follow-up is Pasteurella bacteremia Patient is a 84-year-old male with a past medical history significant for hypertension hyperlipidemia and did have a TAVR procedure on 07/16/2024 also with a history of bilateral hip replacement presenting to the hospital for evaluation of increasing shortness of breath in addition to feeling chilled, patient did have CT angiogram of the chest that was negative for PE or pneumonia did have positive blood culture with Pasteurella prompting this consultation. On today's evaluation that is 08/08/2024,the patient remains to be afebrile, patient is on room air not requiring supplemental oxygen and denies any shortness of breath no chest pain or cough.Patient denies having any nausea or vomiting, no abdominal pain and no diarrhea has been reported, patient mention overall feeling better. Patient white count is 9.22, creat is 1.0 blood culture repeat has been negative Objective - Vital Signs Vital signs: Vital Signs Temp 97.8 F 08/08/24 07:00 Pulse 94 08/08/24 07:00 Resp 17 08/08/24 09:32 BP 146/72 08/08/24 07:00 Pulse Ox 96 08/08/24 07:00 FiO2 Intake & Output 08/07/24 08/08/24 08/08/24 18:59 06:59 18:59 Intake Total 420 240 Balance 420 240 Weight 101.605 kg Intake: Oral 420 240 Other: Voiding Method Toilet # Voids 4 2 # Bowel Movements 0 - Exam GENERAL DESCRIPTION: An elderly male lying in bed in no distress RESPIRATORY SYSTEM: Unlabored breathing , decreased breath sounds at bases HEART: S1 S2 regular rate and rhythm , ABDOMEN: Soft , no tenderness EXTREMITIES: No edema feet - Labs CBC & Chem 7: 08/08/24 04:09 08/08/24 04:09 Labs: Abnormal Lab Results - Last 24 Hours (Table) 08/08/24 08/08/24 Range/Units 04:09 04:09 RBC 3.65 L (4.40-5.60) X 10*6/uL Hgb 11.1 L (13.0-17.0) g/dL Hct 32.3 L (39.6-50.0) % Monocytes # 1.20 H (0.20-1.00) X 10*3/uL ESR 36 H (0-20) mm/Hr BUN/Creatinine Ratio 10.10 L (12.00-20.00) Ratio Glucose 134 H (70-110) mg/dL Calcium 8.3 L (8.7-10.3) mg/dL C-Reactive Protein 4.50 H (0.00-0.80) mg/dL Microbiology - Last 24 Hours (Table) 08/05/24 15:04 Blood Culture - Preliminary Blood 08/04/24 08:48 Blood Culture Gram Stain - Final Blood Blood Culture - Final Pasteurella multocida 08/04/24 08:39 Blood Culture Gram Stain - Final Blood Blood Culture - Preliminary Assessment and Plan (1) Sepsis Current Visit: Yes Status: Acute Code(s): A41.9 - SEPSIS, UNSPECIFIED ORGANISM SNOMED Code(s): 77349922 (2) Pasteurella infection Current Visit: Yes Status: Acute Code(s): A28.0 - PASTEURELLOSIS SNOMED Code(s): 53324766 (3) Bacteremia Current Visit: Yes Status: Acute Code(s): R78.81 - BACTEREMIA SNOMED Code(s): 6994084 Plan: 1patient with initial presentation to hospital with sepsis in this patient who did have fever tachycardia elevated white count meeting criteria for SIRS now with evidence of Pasteurella bacteremia with no clear focus of this bacteremia on initial investigation with a negative chest x-ray UA has been negative and CT general of the chest was negative for any consolidation patient currently do not have any open wound joint swelling or cellulitis and his abdomen is soft mental examination keeping in mind his bacteremia 2 out of 2 on admission and thickening of the mitral valve seen on the echocardiogram with recent TAVR procedure patient would likely benefit from LUCIAN to rule out infective endocarditis which has been scheduled for tomorrow 2-blood culture repeat has been negative so far 3-patient be treated with cefepime while awaiting for the LUCIAN to be completed Dictation was produced using [employer] dictation software. please excuse any gr ammatical, word or spelling errors. Time with Patient: Less than 30
--- NOTE | 2024-08-09 15:26 | P.PN ---
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 Patient is status post completion of LUCIAN this morning did not mention any vegetation. On today's evaluation 08/09/2024, the patient continues to be afebrile, the patient is on room air and breathing comfortably, the Pt denies having any chest pain or cough, the patient denies having any abdominal pain no vomiting or any diarrhea, patient overall feeling better wants to go home. No new lab ordered today blood culture repeat has been negative Objective - Vital Signs Vital signs: Vital Signs Temp 98.7 F 08/09/24 07:45 Pulse 91 08/09/24 07:45 Resp 17 08/09/24 07:45 BP 166/74 08/09/24 07:45 Pulse Ox 94 L 08/09/24 08:39 FiO2 21 08/09/24 08:39 Intake & Output 08/08/24 08/09/24 08/09/24 18:59 06:59 18:59 Intake Total 720 Balance 720 Intake: Oral 720 Other: Voiding Method Toilet # Voids 2 2 - Exam GENERAL DESCRIPTION: An elderly male lying in bed in no distress RESPIRATORY SYSTEM: Unlabored breathing , decreased breath sounds at bases HEART: S1 S2 regular rate and rhythm , ABDOMEN: Soft , no tenderness EXTREMITIES: No edema feet - Labs CBC & Chem 7: 08/08/24 04:09 08/08/24 04:09 Labs: Microbiology - Last 24 Hours (Table) 08/05/24 15:04 Blood Culture - Preliminary Blood Assessment and Plan (1) Sepsis Current Visit: Yes Status: Acute Code(s): A41.9 - SEPSIS, UNSPECIFIED ORGANISM SNOMED Code(s): 40751397 (2) Pasteurella infection Current Visit: Yes Status: Acute Code(s): A28.0 - PASTEURELLOSIS SNOMED Code(s): 98045555 (3) Bacteremia Current Visit: Yes Status: Acute Code(s): R78.81 - BACTEREMIA SNOMED Code(s): 1425758 Plan: 1patient with initial presentation to hospital with sepsis in this patient who did have fever tachycardia elevated white count meeting criteria for SIRS now with evidence of Pasteurella bacteremia with no clear focus of this bacteremia on initial investigation with a negative chest x-ray UA has been negative and CT general of the chest was negative for any consolidation patient currently do not have any open wound joint swelling or cellulitis and his abdomen is soft mental examination keeping in mind his bacteremia 2 out of 2 on admission and thickening of the mitral valve seen on the echocardiogram with recent TAVR procedure patient did have LUCIAN completed verbal report from family mention no endocarditis official report is currently pending 2-blood culture repeat has been negative so far 3-with no evidence for deep infection will recommend a 2-week course of oral Ceftin and plan is for repeating a blood culture 2 weeks after completion of antibiotic to make sure no evidence of any recurrence of bacteremia this was explained in detail to the family at the bedside and prescription was sent to the pharmacy Dictation was produced using [employer] software. please excuse any grammatical, word or spelling errors.
--- NOTE | 2024-08-09 18:35 | P.PCN ---
Date of Procedure: 08/09/24 Operative Findings: TRANSESOPHAGEAL ECHOCARDIOGRAM SWITCH TECHNICIAN: MILTON RODRIGUEZ MD, RPVI INDICATION: Rule out cardiac source of embolus he SEDATION: Conscious sedation COMPLICATION: None LEVEL OF SEDATION Moderate with sedation length of 18 minutes PROCEDURE DESCRIPTION: After obtaining an informed consent, the patient was brought to transesophageal echocardiogram room. Pulse oximetry and heart monitors were attached to the patient. The patient throat was sprayed using lidocaine. The patient was turned into left lateral position. After that a bite guard was placed. After an appropriate conscious sedation was initiated, the transesophageal echocardiogram was advanced through a bite guard into the mid esophagus. A 2-D echocardiogram images, color Doppler images, continuous wave images, pulse-wave images, of various cardiac structure were performed. After that the transesophageal echocardiogram probe was advanced into the stomach and fixed to obtain transgastric view was. The probe was brought into the mid esophagus. Inter-atrial septum was interrogated using 2D images, color Doppler images, and then contrast study. After that transesophageal echocardiogram was withdrawn out and upon withdrawing the descending thoracic aorta all the way up to the arch was evaluated. CONCLUSION: 1. Normal biventricular systolic function 2. No evidence of infective endocarditis 3. Normally functioning transcatheter valve in aortic position 4. Mildly thickened mitral valve leaflets with mild to moderate MR 5. Intact tricuspid valve and pulmonic valve 6. Intact interatrial septum and intact left atrial appendage
== END 2024-08-09 17:06 | disposition home or self-care (01) | DRG 871 ==
LOC: EC 08:37 → 6NMEDSUR 12:37 → OBSVTOIN 12:38 → 6NMEDSUR 20:14
PROVIDERS: ADMIT Student in an Organized Health Care Education/Training Program; ATTEND Student in an Organized Health Care Education/Training Program
PROC: B246ZZ4 Ultrasonography of Right and Left Heart, Transesophageal (ICD-10-PCS; principal; 2024-08-09 09:00)
DX: A41.50 Gram-negative sepsis, unspecified (principal); I21.A1 Myocardial infarction type 2; E87.20 Acidosis, unspecified; I27.20 Pulmonary hypertension, unspecified; A28.0 Pasteurellosis; J43.9 Emphysema, unspecified; I10 Essential (primary) hypertension; E03.8 Other specified hypothyroidism; Z95.2 Presence of prosthetic heart valve; I48.0 Paroxysmal atrial fibrillation; Z11.52 Encounter for screening for COVID-19; E78.5 Hyperlipidemia, unspecified; K21.9 Gastro-esophageal reflux disease without esophagitis; N40.0 Benign prostatic hyperplasia without lower urinary tract symptoms; R20.2 Paresthesia of skin; Z79.899 Other long term (current) drug therapy; E87.6 Hypokalemia; I45.10 Unspecified right bundle-branch block; Z79.01 Long term (current) use of anticoagulants; Z79.82 Long term (current) use of aspirin; Z87.891 Personal history of nicotine dependence; Z96.643 Presence of artificial hip joint, bilateral; Z79.51 Long term (current) use of inhaled steroids; Z88.6 Allergy status to analgesic agent; Z88.5 Allergy status to narcotic agent
CPT/HCPCS: 36415; 71046; 71275; 80048; 80053; 81003; 83605; 83880; 84439; 84443; 84484; 85025; 85379; 85610; 85652; 85730; 86140; 87040; 87636; 93005; 93306; 93312; 93320; 93325; 94640; 94760; 96361; 96374; 99285

== ENCOUNTER → 2024-09-04 | Outpatient (CLI) | payer MEDICARE | END | disposition home or self-care (01) | LOC: LABWHC1 10:08 | PROVIDERS: ATTEND Internal Medicine Infectious Disease | DX: R78.81 Bacteremia (principal) | CPT/HCPCS: 87040 ==